=== PATIENT | female | born 1990 | race Caucasian/White ===

== ENCOUNTER → 2018-02-02 | Outpatient (REF) | payer OTHER | LOC: M SFHCLERA 12:04 | DX: J02.9 Acute pharyngitis, unspecified (principal) ==

== ENCOUNTER → 2018-02-02 | Outpatient (CLI) | payer OTHER | LOC: M LRY 12:17 | DX: R05 Cough (principal); R07.89 Other chest pain | CPT/HCPCS: 71046; 87880 ==

== ENCOUNTER → 2019-01-23 | Outpatient (CLI) | payer OTHER ==
--- NOTE | 2019-01-23 13:26 | REP ---
Nasal bone series three views: There is no nasal bone fracture. No orbital rim fracture is identified. There are no air-fluid levels in the paranasal sinuses. Impression: There is no nasal bone fracture. Electronically Signed by Willy Christine MD 01/23/2019 01:18 P
== END ==
LOC: M LRY 12:53
PROVIDERS: ATTEND Physician Assistant
DX: S09.92XA Unspecified injury of nose, initial encounter (principal); X58.XXXA Exposure to other specified factors, initial encounter; Y92.89 Other specified places as the place of occurrence of the external cause
CPT/HCPCS: 70160; 96372; G0463; J1885

== ENCOUNTER → 2019-06-28 | Outpatient (REF) | payer OTHER | LOC: M SFHCLERA 16:16 | PROVIDERS: ATTEND Physician Assistant | DX: R50.9 Fever, unspecified (principal) ==

== ENCOUNTER → 2019-07-11 | Outpatient (REF) | payer OTHER ==
[2019-07-11 14:32] LABS: HEMATOCRIT 42.8 % (36.0-47.0); HEMOGLOBIN 13.8 g/dl (12.0-15.5); MEAN CORPUSCULAR HEMOGLOBIN 29.1 pg (27.0-33.0); MEAN CORPUSCULAR HGB CONC 32.2 g/dl (32.0-36.5); MEAN CORPUSCULAR VOLUME 90.1 fl (80.0-96.0); PLATELET COUNT, AUTOMATED 266 10^3/uL (150-450); RED BLOOD COUNT 4.75 10^6/uL (4.00-5.40); WHITE BLOOD COUNT 4.2 10^3/uL (4.0-10.0)
[2019-07-11 15:36] LABS: HIV 1&2 SCREEN CENTAUR NEGATIVE (NEGATIVE); RUBELLA IgG QUALITATIVE IMMUNE (IMMUNE)
[2019-07-11 16:03] LABS: CHLAMYDIA DNA AMPLIFICATION NEGATIVE (NEGATIVE); GC DNA AMPLIFICATION NEGATIVE (NEGATIVE)
== END ==
LOC: M PLALAB 11:26
PROVIDERS: ATTEND Specialist
DX: Z34.81 Encounter for supervision of other normal pregnancy, first trimester (principal)

== ENCOUNTER → 2019-07-19 | Outpatient (REF) | payer OTHER | LOC: M SFHCWAGY 17:40 | PROVIDERS: ATTEND Advanced Practice Midwife | DX: O99.341 Other mental disorders complicating pregnancy, first trimester (principal) ==

== ENCOUNTER → 2019-07-31 | Outpatient (CLI) | payer OTHER ==
[2019-07-31 14:53] LABS: INFLUENZA A AMPLIFICATION NEGATIVE (NEGATIVE); INFLUENZA B AMPLIFICATION NEGATIVE (NEGATIVE)
== END ==
LOC: M LABSMTC 12:46
PROVIDERS: ATTEND Family Medicine
DX: Z11.59 Encounter for screening for other viral diseases (principal); Z20.828 Contact with and (suspected) exposure to other viral communicable diseases
CPT/HCPCS: 87502; U0002

== ENCOUNTER → 2019-08-27 | Outpatient (CLI) | payer OTHER ==
--- NOTE | 2019-08-28 05:58 | REP ---
Clinical: . Epigastric pain. Technique: Real time reyes scale and color evaluation using curved array transducer. Findings: Liver, spleen, and pancreas are normal in contour, size, echogenicity without focal hepatic, splenic, or pancreatic lesion identified. Incidental 2 cm splenule noted. Gallbladder demonstrates multiple gallstones measuring up to 14 mm. Gallbladder wall is upper limits of normal at 3 mm and there is no evidence for pericholecystic fluid or discrete sonographic Kennedy's sign. No biliary ductal dilatation is appreciated and the common bile duct measures 2 mm diameter. The bilateral kidneys are normal in reniform shape without hydronephrosis. Right kidney measures 12.2 x 4.8 x 4.0 cm. Left kidney measures 10.0 x 5.1 x 5.0 cm. Abdominal aorta is unremarkable. No ascites. Impression: 1. Cholelithiasis.
== END ==
LOC: M WHC 08:17
PROVIDERS: ATTEND Obstetrics & Gynecology
DX: R10.13 Epigastric pain (principal)

== ENCOUNTER → 2019-08-28 | Outpatient (CLI) | payer OTHER ==
--- NOTE | 2019-08-29 04:34 | REP ---
Clinical: Anatomical evaluation. Comparison: None . Findings: Examination demonstrates a single live intrauterine in variable presentation. motion is identified by technologist. Placenta is noted posterior and grade zero without evidence for placenta previa or abruption. Amniotic fluid volume is normal. Cervix measures 3.0 cm in length and appears closed. No evidence for nuchal cord. Gestational age by current measurements 18 weeks 1 day with AMARI 01/28/2020 . FHR equals 136 beats per minute. BPD 4.1 cm 18 weeks 3 days HC 15.6 cm 18 weeks 3 days AC 12.7 cm 18 weeks 2 days FL 2.6 cm 17 weeks 6 days HL 2.6 cm 18 weeks 1 day HC/AC ratio 1.22 Estimated weight 225 grams ( 46th percentile). Anatomical assessment demonstrates normal structures including cranium, choroid plexus, cavum, cerebellum/posterior fossa, facial features, lungs, diaphragm, stomach, cord insertion/three-vessel cord, kidneys/bladder, spine, and extremities. Impression: Single live intrauterine in variable presentation demonstrating appropriate estimated weight. Limited evaluation of the heart/ventricular outflow tracts. Remainder of the anatomical assessment is complete and normal.
== END ==
LOC: M WHC 12:34
PROVIDERS: ATTEND Obstetrics & Gynecology
DX: Z3A.17 17 weeks gestation of pregnancy (principal)

== ENCOUNTER → 2019-09-08 | Outpatient (CLI) | payer OTHER ==
[~2019-09-08] MED LIST: ADDE10CA3 PO; CELE40TA PO; PRENTAB9 PO; URSO300C3 PO
== END ==
LOC: M LABSMTC 08:19
PROVIDERS: ATTEND Surgery
DX: Z01.818 Encounter for other preprocedural examination (principal); Z11.59 Encounter for screening for other viral diseases

== ENCOUNTER 2019-09-11 07:30 | Day surgery (SDC) | payer OTHER ==
[~2019-09-11] VITALS: Ht 162.6 cm; Wt 71.2 kg
[~2019-09-11 07:30] MED LIST changes: +LR 1,000 ML IV ONE; +ceFAZolin SOD 1 GM in D5W MINI-BAG PLUS 50 ML IV ONE
[2019-09-11] MEDS ORDERED: LIDOCAINE 2% 100MG/5ML SDV (FOR ANES.) As Ordered ONE (08:10)
[2019-09-11] MEDS ORDERED: propofoL 200 MG/20 ML VIAL As Ordered ONE (08:10)
[2019-09-11] MEDS ORDERED: ROCURONIUM BROMIDE 50 MG/5 ML VIAL As Ordered ONE (08:10)
[2019-09-11] MEDS ORDERED: fentaNYL 250 MCG/5 ML INJECTION (J3010) As Ordered ONE (08:10)
[2019-09-11] MEDS ORDERED: MIDAZOLAM INJ 2MG/2ML VIAL (J2250 PER 1MG) As Ordered ONE (08:10)
[2019-09-11] MEDS ORDERED: SUCCINYLCHOLINE 100 MG/5 ML SYRINGE (J0330) As Ordered ONE (08:10)
[2019-09-11] MEDS ORDERED: BUPIVACAINE/EPIN 0.25% 30 ML VIAL As Ordered ONE (08:49)
[2019-09-11] MEDS ORDERED: GLUCAGON INJ 1MG VIAL As Ordered ONE (08:49)
[2019-09-11] MEDS ORDERED: KETOROLAC 60 MG/2 ML VIAL As Ordered ONE (09:43)
[2019-09-11] MEDS ORDERED: ONDANSETRON 4MG/2ML VIAL As Ordered ONE (09:43)
[2019-09-11] MEDS ORDERED: dexameTHASONE 4 MG/ML 1ML VIAL (J1100 PER 1MG) As Ordered ONE (09:43)
[2019-09-11] MEDS ORDERED: METOCLOPRAMIDE INJ 10MG/2ML VIAL (J2765 PER 1) As Ordered ONE (09:43)
[2019-09-11] MEDS ORDERED: ACETAMINOPHEN 1000MG 100ML IV BTL (OFIRMEV) (J0131 PER 10MG) As Ordered ONE (09:45)
[2019-09-11] MEDS ORDERED: SUGAMMADEX SODIUM 500 MG/5 ML VIAL (BRIDION) As Ordered ONE (09:51)
[2019-09-11] MEDS ORDERED: fentaNYL 100 MCG/2 ML INJECTION (J3010) As Ordered ONE (10:14)
[2019-09-11] MEDS ORDERED: fentaNYL 100 MCG/2 ML INJECTION (J3010) IV PRN (10:45)
[2019-09-11] MEDS ORDERED: LR 1,000 ML IV SCH ×2 (10:45→11:00)
[2019-09-11] MEDS ORDERED: ONDANSETRON 4MG/2ML VIAL IV PRN (10:45)
[2019-09-11] MEDS ORDERED: NORCO, ANEXSIA 5/325MG TABLET (HYDROcodone/ACETAMINOPHEN) PO PRN (11:00)
[2019-09-11 12:35] VITALS: BP 113/57
== END 2019-09-11 12:45 | disposition home or self-care (01) ==
LOC: M SDC 07:30
PROVIDERS: ATTEND Surgery
DX: O99.612 Diseases of the digestive system complicating pregnancy, second trimester (principal); K80.10 Calculus of gallbladder with chronic cholecystitis without obstruction; Z3A.21 21 weeks gestation of pregnancy; Z79.899 Other long term (current) drug therapy; F41.9 Anxiety disorder, unspecified; F32.9 Major depressive disorder, single episode, unspecified
CPT/HCPCS: 47562; 88304; J0131; J0330; J0690; J1100; J1885; J2405; J2765; J3010

== ENCOUNTER → 2019-09-28 | Outpatient (CLI) | payer OTHER ==
[~2019-09-28] MED LIST changes: -LR 1,000 ML IV ONE; -ceFAZolin SOD 1 GM in D5W MINI-BAG PLUS 50 ML IV ONE
--- NOTE | 2019-09-28 17:27 | REP ---
Clinical: Anatomical evaluation. Comparison: 08/28/2019 . Findings: Examination demonstrates a single live intrauterine in breech presentation. motion is identified by technologist. Placenta is noted posterior and grade I without evidence for placenta previa or abruption. Amniotic fluid volume is normal. Cervix measures 3.5 cm in length and appears closed. No evidence for nuchal cord. Gestational age by LMP 22 weeks 4 days with AMARI 01/28/2020 . Gestational age by current measurements 22 weeks 4 days with AMARI 01/28/2020. FHR equals 152 beats per minute. Estimated weight 542 grams ( 54th percentile). Anatomical assessment demonstrates normal structures including cranium, cavum, cerebellum/posterior fossa, facial features, lungs, four-chamber heart/ventricular outflow tracts, diaphragm, stomach, cord insertion/three-vessel cord, kidneys/bladder. Impression: 1. Single live intrauterine in breech presentation demonstrating appropriate interval growth. 2. Small right choroid plexus cyst measures 7 mm diameter. In conjunction with prior examination, remainder of the anatomical assessment is complete and normal.
== END ==
LOC: M WHC 10:34
PROVIDERS: ATTEND Advanced Practice Midwife
DX: O26.892 Other specified pregnancy related conditions, second trimester (principal); Z3A.22 22 weeks gestation of pregnancy; O32.1XX0 Maternal care for breech presentation, not applicable or unspecified

== ENCOUNTER → 2020-01-03 | Outpatient (REF) | payer OTHER ==
[~2020-01-03] MED LIST changes: +ADDE10TA PO; +FIOR1CAP PO; +FIORCAP3 PO; +MAPA500T2 PO
== END ==
LOC: M WHC 16:00
PROVIDERS: ATTEND Advanced Practice Midwife
DX: Z34.83 Encounter for supervision of other normal pregnancy, third trimester (principal); Z36.85 Encounter for antenatal screening for Streptococcus B

== ENCOUNTER 2020-01-06 17:40 | Outpatient (CLI) | payer OTHER ==
[~2020-01-06] VITALS: Ht 162.6 cm; Wt 77.2 kg
[~2020-01-06 17:40] MED LIST changes: -ADDE10TA PO; -FIOR1CAP PO; -FIORCAP3 PO; -MAPA500T2 PO
[2020-01-06 17:54] VITALS: BP 108/59
[2020-01-06] MEDS ORDERED: MAPA500T2 PO (18:03)
[2020-01-06 18:34] VITALS: BP 108/60
== END 2020-01-06 18:36 | disposition home or self-care (01) ==
LOC: M LDO 17:40
PROVIDERS: ATTEND Specialist
DX: O26.893 Other specified pregnancy related conditions, third trimester (principal); Z3A.38 38 weeks gestation of pregnancy
CPT/HCPCS: 59025; G0378; G0463

== ENCOUNTER 2020-01-14 19:38 | Outpatient (CLI) | payer OTHER ==
[~2020-01-14] VITALS: Ht 162.6 cm; Wt 78.0 kg
[~2020-01-14 19:38] MED LIST changes: +MAPA500T2 PO
[2020-01-14] MEDS ORDERED: FIOR1CAP PO (20:05)
[2020-01-14 20:08] VITALS: BP 121/81
[2020-01-14] MEDS ORDERED: PERCOCET 5MG/325MG TAB PO ONE (20:15)
[2020-01-14 20:16] VITALS: BP 121/81
--- NOTE | 2020-01-14 21:21 | IPNPDOC ---
Text Note Date of Service The patient was seen on 01/14/20. NOTE Subjective: Patient is a 29-year-old female who is at 39.3 weeks gestation. She presents to L&D with complaints of a migraine that started yesterday. She reports a few episodes of nausea with vomiting and what she explains as one of the worst migraines she has had. She has taken Esgic with minimal to no relief. Reports migraine is an 8/10. Ivory states she can't take Imitrex due to side effects from medication. Given Percocet while in department. She reports active movement. She denies vaginal bleeding, leaking of fluid or contractions. After one dose of Percocet she reports her migraine has gotten better. Objective: VS stable. FHR: 130, moderate variability, positive accelerations, no decelerations. Contractions: irregular. A+Ox3; Respiratory; regular rate with no use of accessory muscles; Abdomen: gravid, soft and not tender. Assessment: IUP at 39.3 weeks gestation, migraine, Category I FHR tracing Plan: Patient discharged to home. She desires to be induced on Tuesday. She was placed in the book for induction. She is to go to her scheduled appointment on Tuesday morning. Reviewed access to care, kick count, labor signs, preeclamptic signs, abruption signs and other danger signs to report. VS,Changbone, I+O VS, Fishbone, I+O Vital Signs Date Time Temp Pulse Resp B/P (MAP) Pulse Ox O2 Delivery O2 Flow Rate FiO2 01/14/20 20:16 96.9 86 18 121/81 Room Air RAIZA MCALLISTER CNM Jan 14, 2020 21:21
== END 2020-01-14 21:03 | disposition home or self-care (01) ==
LOC: M LDO 19:38
PROVIDERS: ATTEND Advanced Practice Midwife
DX: O99.353 Diseases of the nervous system complicating pregnancy, third trimester (principal); G43.909 Migraine, unspecified, not intractable, without status migrainosus; Z3A.39 39 weeks gestation of pregnancy
CPT/HCPCS: 59025; G0378; G0463

== ENCOUNTER 2020-01-16 16:30 | Outpatient (CLI) | payer OTHER ==
[~2020-01-16] VITALS: Ht 162.6 cm; Wt 78.3 kg
[~2020-01-16 16:30] MED LIST changes: +FIOR1CAP PO
[2020-01-16 16:58] VITALS: BP 114/70
[2020-01-16] MEDS ORDERED: ADDE10TA PO (17:03)
[2020-01-16] MEDS ORDERED: FIORCAP3 PO (17:05)
== END 2020-01-16 17:29 | disposition home or self-care (01) ==
LOC: M LDO 16:30
PROVIDERS: ATTEND Advanced Practice Midwife
DX: O47.1 False labor at or after 37 completed weeks of gestation (principal); Z3A.39 39 weeks gestation of pregnancy
CPT/HCPCS: 59025; G0378; G0463

== ENCOUNTER 2020-01-19 09:48 | Inpatient (IN) | payer OTHER ==
[~2020-01-19] VITALS: Ht 162.6 cm; Wt 79.2 kg
[~2020-01-19 09:48] MED LIST changes: +ADDE10TA PO; +FIORCAP3 PO
--- NOTE | 2020-01-19 13:44 | HPEPDOC ---
Obstetrical History & Physical General Date of Admission Jan 19, 2020 at 09:48 History of Present Illness 29-year-old 2, para 1 presents at 40 weeks 1 day estimated gestational a ge for induction labor. Her course is been unremarkable. She initiated care first trimesters and appropriate throughout. She reports active movements. Denies any vaginal bleeding, leakage fluid or regular contractions Chief Complaint: Induction of labor Information Provided By: Patient Age: 29 Care Care: Good Care Dating Final EDC: Jan 18, 2020 Final EDC by: 1st trimester (US) Past Medical History Past Obstetrical History : Past Obstetrical History: Multigravida Type of Delivery: Spontaneous Vaginal Del. (history of 20 delivery with at 34 weeks at home. 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 history Past Medical History Surgical History: Denies/None, Gallbladder Family History Significant Family History: No pertinent family hx Social History Marital Status: Family situation: Spouse/partner home Psychosocial History: No pertinent psych hx * Smoker: non-smoker Alcohol: Denies Drugs: denies Allergies Coded Allergies: No Known Allergies (Unverified , 01/19/20) Medications Scheduled Citalopram Hydrobromide (Celexa) 40 Mg Tablet, 40 MG PO DAILY No.137/Iron/Folic Acd ( Vitamin Tablet) 1 Each Tablet, 1 TAB PO DAILY Scheduled PRN Acetaminophen (Mapap) 500 Mg Tablet, 650 MG PO Q4HP PRN for DISCOMFORT Butalbital/Aspirin/Caffeine (Fiorinal 50-325-40 mg Capsule) 1 Each Capsule, 1 CAP PO Q4H PRN for HEADACHE Physical Examination Physical Examination GENERAL: Alert and oriented times three. BREAST: . ABDOMEN: Gravid and non-tender to touch. FETUS: Is vertex (VTX) by sterile vaginal examination (SVE), fetus is vertex (VTX) by Anderson. HEART RATE: Regular rate and rhythm. LUNGS: Clear to auscultation (CTA). Laboratory Data [facility] Laboratory Tests 2 01/19/20 10:20: Serology Scanned Report Hepatitis B Testing Pertinent Laboratoy Data Blood Type: O+ RBC Antibody Screen: Negative HIV: Negative Hepatitis B: Negative Rapid Plasma Reagin: Nonreactive Rubella: Immune Chlamydia/Gonorrhea: Negative Group B Streptococcus: Negative Anatomy Ultrasound Placenta Location: Posterior Normal Anatomy: Yes Placenta Previa: No Vaginal Examination Dilation: 3 cm Effacement: 50% Station: -2 Cervical Consistency: Medium Cervical Position: Middle Presentation: Cephalic presentation Assessment Variability: Moderate Accelerations: Positive Tocometer Contractions: No Assessment/Plan Assessment [id number] 2 , para 1 at 40 weeks 1 days as needed gestational age for induction labor. Reassuring status. Patient thoroughly counseled regards to induction labor. Discussed medication as well as procedures performed labor and delivery. She is been counseled for emergency surgery, blood products anesthesia and pt desires to proceed with admission and induction labor. Will initiate her induction of labor with Pitocin. Plan Admit and orient. Figure Skater and consent. Diet: Clears Group B Streptococcus (GBS) negative. Labs and intravenous (IV) per unit protocol. Counseled on Pitocin and induction of labor (IOL). Anticipate normal spontaneous delivery (). C-S as appropriate. CAMERON BARRERA MD. Jan 19, 2020 13:44
[2020-01-19] MEDS ORDERED: OXYTOCIN DRIP 30 UNITS in IV 1 EA IV SCH (13:45)
[2020-01-19] MEDS: LR 1,000 ML IV SCH ×3 (14:09→23:15)
[2020-01-19] MEDS ORDERED: ACETAMINOPHEN 500 MG TAB PO PRN (16:15)
[2020-01-19 17:35] LABS: HEMATOCRIT 33.3 % (36.0-47.0); HEMOGLOBIN 10.4 g/dl (12.0-15.5); MEAN CORPUSCULAR HEMOGLOBIN 25.8 pg (27.0-33.0); MEAN CORPUSCULAR HGB CONC 31.2 g/dl (32.0-36.5); MEAN CORPUSCULAR VOLUME 82.6 fl (80.0-96.0); PLATELET COUNT, AUTOMATED 234 10^3/uL (150-450); RED BLOOD COUNT 4.03 10^6/uL (4.00-5.40)
[2020-01-19] MEDS ORDERED: PROMETHAZINE INJ 25 MG/ML VIAL (J2550) IV PRN (21:00)
[2020-01-19] MEDS ORDERED: BUTORPHANOL 2 MG/ML INJ (J0595) IV ONE (21:00)
[2020-01-19] MEDS ORDERED: FENTANYL 2MCG/ML ROPIVACAINE 0.2% IN 0.9% NACL 100ML IVBAG As Ordered ONE (22:55)
[2020-01-20] MEDS: LR 1,000 ML IV SCH (00:19)
[2020-01-20] MEDS ORDERED: ePHEDrine SULFATE 25 MG/5 ML(5MG/ML) SYRINGE As Ordered ONE (00:42)
[2020-01-20] MEDS ORDERED: LACTATED RINGER'S 1000 ML IV PRN (00:45)
[2020-01-20] MEDS ORDERED: EPIDURAL COMMENT XX SCH (00:45)
[2020-01-20] MEDS ORDERED: REFRIGERATOR IV KEYS XX PRN (00:45)
[2020-01-20] MEDS ORDERED: EPIDURAL/PCA KEYS XX PRN (00:45)
[2020-01-20] MEDS ORDERED: NALOXONE INJ 0.4MG/1ML VIAL (J2310 PER 1MG) IV PRN (00:45)
[2020-01-20] MEDS ORDERED: ONDANSETRON 4MG/2ML VIAL IV PRN (00:45)
[2020-01-20] MEDS ORDERED: FENTANYL/ROPIVACAINE/NACL BAG 100 ML EPIDURAL SCH (00:45)
[2020-01-20] MEDS ORDERED: diphenhydrAMINE 50MG/ML VIAL (J1200) IV PRN (00:45)
[2020-01-20] MEDS: ePHEDrine SULFATE 25 MG/5 ML(5MG/ML) SYRINGE IV PRN ×2 (00:46→02:51)
[2020-01-20 05:22] LABS: CORD GAS ABE A -6.3; CORD GAS ABE V -9.6; CORD GAS HCO3 A 22.1 MEQ/L; CORD GAS HCO3 V 18.1 MEQ/L; CORD GAS O2 SAT A 56.2 %; CORD GAS O2 SAT V 25.2 %; CORD GAS PCO2 V 46.1 mmHg; CORD GAS PH A 7.222 UNITS; CORD GAS PH V 7.213 UNITS; CORD GAS PO2 A 27.6 mmHg; CORD GAS PO2 V 16.9 mmHg; CORD GAS SBC A 18.4 MEQ/L; CORD GAS SBC V 15.5 MEQ/L; CORD GAS TCO2 A 23.8 MEQ/L; CORD GAS TCO2 V 19.6 MEQ/L
[2020-01-20] MEDS ORDERED: OXYTOCIN DRIP 30 UNITS in IV 1 EA IV SCH (05:23)
--- NOTE | 2020-01-20 05:28 | DNPDOC ---
[facility] Delivery Note Delivery Note DATE OF DELIVERY: 01/20/2020 TIME OF : 0507 GENDER:, Male. APGARS:, 5, 7 and 8. WEIGHT:, 3360 grams or 7 pounds 7 ounces. LACERATIONS: None ANESTHESIA: Epidural. ESTIMATED BLOOD LOSS: 300ml COUNTS: 5 laparotomy sponges accounted for prior to after delivery. 4 sharps re moved delivery field. DELIVERY NOTE: On 01/20/2020 at 0507 Mrs Yong munoz 29yo G2, now P2, had a spontaneous vaginal delivery of viable male infant, Apgars 5, 7 and 8. Weight was 3360 g or 7 lbs. 7 oz. Head was delivered occiput anterior (OA) . Nuchal cord x2 was manually reduced, followed by delivery of the shoulders and corpus. Cord was clamped times two and was cut by the father of baby under my direction. Placenta was then drained and delivered grossly intact. A premixed bag of 500 mL of normal saline with 30 units of Pitocin was then bolused along with uterine massage until the uterus was firm. On inspection, cervix, vagina, perineum was grossly intact and hemostatic. Mom and baby in recovery on stable condition. The couples decided to remain in son CAMERON Lopez MD. Jan 20, 2020 05:28
[2020-01-20] MEDS ORDERED: ANUSOL HC CREAM 30GM TOP PRN (05:30)
[2020-01-20] MEDS ORDERED: MOM 30ML SUSPENSION UDC PO PRN (05:30)
[2020-01-20] MEDS ORDERED: RHOGAM 300 MCG (1500 IU) INJ (J2790) IM SCH (05:30)
[2020-01-20] MEDS ORDERED: IBUPROFEN 600MG TAB PO PRN (05:30)
[2020-01-20] MEDS ORDERED: DOCUSATE SODIUM 100 MG CAP PO PRN (05:30)
[2020-01-20] MEDS ORDERED: DIBUCAINE 1% OINTMENT 30GM TOP PRN (05:30)
[2020-01-20] MEDS ORDERED: METHYLERGONOVINE MALEATE 0.2 MG TAB PO PRN (05:30)
[2020-01-20] MEDS ORDERED: ACETAMINOPHEN TAB 650MG DOSE (2X325MG) PO PRN (05:30)
[2020-01-20] MEDS ORDERED: MEASLES,MUMPS,RUBELLA VACCINE INJ (MMR-II) (90707) SC SCH (05:30)
[2020-01-20] MEDS: IBUPROFEN 800 MG TAB PO PRN ×2 (06:13→15:33)
[2020-01-20] MEDS: PRENATAL VITAMINS CHEWABLE TABLET PO SCH (07:17)
[2020-01-20] MEDS: ACETAMINOPHEN 500 MG TAB PO PRN ×3 (07:17→19:38)
[2020-01-20 08:30] VITALS: BP 112/58
[2020-01-20] MEDS ORDERED: CitaloPRAM (CeleXA) 20 MG TAB PO SCH ×3 (09:00→21:00)
[2020-01-20 18:00] VITALS: BP 113/62
[2020-01-21 05:51] VITALS: BP 109/57
[2020-01-21] MEDS: PRENATAL VITAMINS CHEWABLE TABLET PO SCH (08:16)
[2020-01-21] MEDS: ACETAMINOPHEN 500 MG TAB PO PRN (08:17)
[2020-01-21] MEDS ORDERED: CitaloPRAM (CeleXA) 20 MG TAB PO SCH ×2 (09:00)
[2020-01-21] MEDS ORDERED: BOOSTRIX/ADACEL VACCINE (DIPHTH/PERTUSS/ACELL/TETANUS) 0.5ML SYR IM ONE (09:00)
[2020-01-21] MEDS ORDERED: INFLUENZA QUADRIVALENT PF VACCINE 0.5ML SYRINGE IM ONE (09:00)
== END 2020-01-21 11:45 | disposition home or self-care (01) | DRG 807 ==
LOC: M LDI 09:48 → M OBS 01-20 08:33
PROVIDERS: ADMIT Obstetrics & Gynecology; ATTEND Obstetrics & Gynecology
PROC: 3E033VJ Introduction of Other Hormone into Peripheral Vein, Percutaneous Approach (ICD-10-PCS; 2020-01-19)
PROC: 10E0XZZ Delivery of Products of Conception, External Approach (ICD-10-PCS; principal; 2020-01-20)
DX: O48.0 Post-term pregnancy (principal); Z37.0 Single live birth; Z3A.40 40 weeks gestation of pregnancy; O69.81X0 Labor and delivery complicated by cord around neck, without compression, not applicable or unspecified

== ENCOUNTER → 2020-05-18 | Outpatient (CLI) | payer OTHER ==
[~2020-05-18] MED LIST changes: +ADDE20CA3 PO
== END ==
LOC: M LABSMTC 10:06
PROVIDERS: ATTEND Anesthesiology
DX: Z01.812 Encounter for preprocedural laboratory examination (principal); Z20.822 Contact with and (suspected) exposure to COVID-19

== ENCOUNTER 2020-05-23 08:29 | Day surgery (SDC) | payer OTHER ==
[~2020-05-23] VITALS: Ht 162.6 cm; Wt 72.6 kg
[~2020-05-23 08:29] MED LIST changes: +LR 1,000 ML IV ONE
--- OUTSIDE RECORDS SUMMARY | 2020-05-23 08:33 | CCD ---
Author Author [facility] Organization [facility] Address Unknown Phone Unavailable Care Team Providers Care Analytical Sciences Director Name Role Phone Angela Almanzar Unavailable PROBLEMS Type Condition ICD9-CM Code HKE28-CB Code Onset Dates Condition S tatus SNOMED Code Notes Problem Other central nervous system complications of anesthesia during , second trimester O29.292 Active 92968254 3 Problem Cholelithiasis K80.20 Active 597336734 Problem Intractable migraine without status migrainosus, unspecified migraine type G43.919 Active 225941071 Problem Supervision of other normal Z34.80 Ac tive 444476119 Problem 11 weeks gestation of Z3A.11 Active 79655641 Problem Adult ADHD F90.9 Active 247547462 ALLERGIES No Known Allergies ENCOUNTERS from 1991 to 2020-03-25 Encounter Location Date Provider Diagnosis [facility] [address] [place] [id number] Mar, Angela Almanzar IMMUNIZATIONS No Information SOCIAL HISTORY Tobacco Use: Social History Observation Description Date Details (start date - stop date) Never Smoker Sex Assigned At : Social History Observation Description Sex Assigned At Unknown Education: Question Answer Notes Level of Education: Not Finished College Language: Question Answer Notes Languages spoken: Scottish Domestic Violence: Question Answer Notes Status: No history of abuse Sexual Hx: Question Answer Notes Had sex in the last 12 months (vaginal, oral, or anal)? Yes LMP: 14 Apr 2019 Have you ever had an STD? No with Men only Use protection? No Alcohol Screening: Question Answer Notes Did you have a drink containing alcohol in the past year? No Points 0 Interpretation Negative Tobacco Use: Question Answer Notes Are you a: never smoker REASON FOR REFERRAL No Information VITAL SIGNS No information MEDICATIONS Medication SIG (Take, Route, Frequency, Duration) Notes Start Da te End Date Status Citalopram Hydrobromide 40 MG 1 tablet Orally Once a day for 30 day(s ) Active Esgic 50-325-40 MG 1 capsule as needed Orally every 4 - 6 hrs for 7 day(s) Active - 1 tablet Orally Once a day for 30 day(s) Active Adderall 10 MG 1 tablet Orally Twice a day for 30 days Feb, Active PROCEDURES No Information RESULTS No Results REASON FOR VISIT AUTHORIZATION MEDICAL (GENERAL) HISTORY Type Description Date Medical History 2015 Irion/ Di twins- one di ed at 18 weeks, delivered at 34 weeks Medical History ADHD Medical History Depression Medical History Anxiety Surgical History knee surgery left 2010 Surgical History knee surgery right 2011 Surgical History arm surgery 2003 Surgical History gall bladder removal 2019 Hospitalization History Childbirth Goals Section No Information Health Concerns No Information MEDICAL EQUIPMENT No Information MENTAL STATUS No Information FUNCTIONAL STATUS No Information ASSESSMENTS No Information PLAN OF TREATMENT Next Appt Details Provider Name:Angela Walters Yohan, 2020-05-23 0 4:30:00 PM, [address] [place] [address], [phone], Provider Name:Angela Selena Yohan, 2020-06-17 1 2:00:00 AM, [address] [place] [address], [id number], Insurance Providers Payer Name Payer Address Payer Phone Insured Name Patient Relati onship to Insured Coverage Start Date Coverage End Date [facility] [id number] [id number] [address]
--- OUTSIDE RECORDS SUMMARY | 2020-05-23 08:33 | CCD ---
Author Author [facility] Organization [facility] Address Unknown Phone Unavailable Care Team Providers Care [employer] Assistant Football Coach Name Role Phone Elizabeth Adkins JR, MD Unavailable Unavailable Elizabeth Adkins JR, MD Unavailable Unavailable Elizabeth Adkins JR, MD Unavailable Unavailable Elizabeth Adkins JR, MD Unavailable Unavailable Elizabeth Adkins JR, MD Unavailable Unavailable Elizabeth Adkins JR, MD Unavailable Unavailable Elizabeth Adkins JR, MD Unavailable Unavailable Elizabeth Adkins JR, MD Unavailable Unavailable Elizabeth Adkins JR, MD Unavailable Unavailable Elizabeth Adkins JR, MD Unavailable Unavailable Elizabeth Adkins JR, MD Unavailable Unavailable Elizabeth Adkins JR, MD Unavailable Unavailable Elizabeth Adkins JR, MD Unavailable Unavailable Elizabeth Adkins JR, MD Unavailable Unavailable Elizabeth Adkins JR, MD Unavailable Unavailable Elizabeth Adkins JR, MD Unavailable Unavailable Elizabeth Adkins JR, MD Unavailable Unavailable Elizabeth Adkins JR, MD Unavailable Unavailable Elizabeth Adkins JR, MD Unavailable Unavailable Elizabeth Adkins JR, MD Unavailable Unavailable Elizabeth Adkins JR, MD Unavailable Unavailable Elizabeth Adkins JR, MD Unavailable Unavailable Elizabeth Adkins JR, MD Unavailable Unavailable Elizabeth Adkins JR, MD Unavailable Unavailable Elizabeth Adkins JR, MD Unavailable Unavailable Elizabeth Adkins JR, MD Unavailable Unavailable Elizabeth Adkins JR, MD Unavailable Unavailable Elizabeth Adkins JR, MD Unavailable Unavailable Elizabeth Adkins JR, MD Unavailable Unavailable Elizabeth Adkins JR, MD Unavailable Unavailable Elizabeth Adkins JR, MD Unavailable Unavailable Elizabeth Adkins JR, MD Unavailable Unavailable Elizabeth Adkins JR, MD Unavailable Unavailable Elizabeth Adkins JR, MD Unavailable Unavailable Elizabeth Adkins JR, MD Unavailable Unavailable Elizabeth Adkins JR, MD Unavailable Unavailable Elizabeth Adkins JR, MD Unavailable Unavailable Elizabeth Adkins JR, MD Unavailable Unavailable Elizabeth Adkins JR, MD Unavailable Unavailable Elizabeth Adkins JR, MD Unavailable Unavailable Elizabeth Adkins JR, MD Unavailable Unavailable Elizabeth Adkins JR, MD Unavailable Unavailable Elizabeth Adkins JR, MD Unavailable Unavailable Elizabeth Adkins JR, MD Unavailable Unavailable Elizabeth Adkins JR, MD Unavailable Unavailable Elizabeth Adkins JR, MD Unavailable Unavailable Elizabeth Adkins JR, MD Unavailable Unavailable Elizabeth Adkins JR, MD Unavailable Unavailable Elizabeth Adkins JR, MD Unavailable Unavailable Elizabeth Adkins JR, MD Unavailable Unavailable Elizabeth Adkins JR, MD Unavailable Unavailable Elizabeth Adkins JR, MD Unavailable Unavailable Elizabeth Adkins JR, MD Unavailable Unavailable Elizabeth Adkins JR, MD Unavailable Unavailable Elizabeth Adkins JR, MD Unavailable Unavailable CASTILLO, M FELECIA VALVE TECHNICIAN Unavailable Unavailable CASTILLO, M FELECIA VALVE TECHNICIAN Unavailable Unavailable CASTILLO, M FELECIA VALVE TECHNICIAN Unavailable Unavailable CASTILLO, M FELECIA VALVE TECHNICIAN Unavailable Unavailable CASTILLO, M FELECIA VALVE TECHNICIAN Unavailable Unavailable CASTILLO, M FELECIA VALVE TECHNICIAN Unavailable Unavailable CASTILLO, M FELECIA VALVE TECHNICIAN Unavailable Unavailable CASTILLO, M FELECIA VALVE TECHNICIAN Unavailable Unavailable CASTILLO, M FELECIA VALVE TECHNICIAN Unavailable Unavailable CASTILLO, M FELECIA VALVE TECHNICIAN Unavailable Unavailable CASTILLO, M FELECIA VALVE TECHNICIAN Unavailable Unavailable CASTILLO, M FELECIA VALVE TECHNICIAN Unavailable Unavailable CASTILLO, M FELECIA VALVE TECHNICIAN Unavailable Unavailable CASTILLO, M FELECIA VALVE TECHNICIAN Unavailable Unavailable CASTILLO, M FELECIA VALVE TECHNICIAN Unavailable Unavailable CASTILLO, M FELECIA VALVE TECHNICIAN Unavailable Unavailable CASTILLO, M FELECIA VALVE TECHNICIAN Unavailable Unavailable CASTILLO, M FELECIA VALVE TECHNICIAN Unavailable Unavailable CASTILLO, M FELECIA VALVE TECHNICIAN Unavailable Unavailable CASTILLO, M FELECIA VALVE TECHNICIAN Unavailable Unavailable CASTILLO, M FELECIA VALVE TECHNICIAN Unavailable Unavailable CASTILLO, M FELECIA VALVE TECHNICIAN Unavailable Unavailable CASTILLO, M FELECIA VALVE TECHNICIAN Unavailable Unavailable CASTILLO, M FELECIA VALVE TECHNICIAN Unavailable Unavailable CASTILLO, M FELECIA VALVE TECHNICIAN Unavailable Unavailable CASTILLO, M FELECIA VALVE TECHNICIAN Unavailable Unavailable CASTILLO, M FELECIA VALVE TECHNICIAN Unavailable Unavailable CASTILLO, M FELECIA VALVE TECHNICIAN Unavailable Unavailable CASTILLO, M FELECIA VALVE TECHNICIAN Unavailable Unavailable CASTILLO, M FELECIA VALVE TECHNICIAN Unavailable Unavailable CASTILLO, M FELECIA VALVE TECHNICIAN Unavailable Unavailable CASTILLO, M FELECIA VALVE TECHNICIAN Unavailable Unavailable CASTILLO, M FELECIA VALVE TECHNICIAN Unavailable Unavailable CASTILLO, M FELECIA VALVE TECHNICIAN Unavailable Unavailable CASTILLO, M FELECIA VALVE TECHNICIAN Unavailable Unavailable CASTILLO, M FELECIA VALVE TECHNICIAN Unavailable Unavailable CASTILLO, M FELECIA VALVE TECHNICIAN Unavailable Unavailable CASTILLO, M FELECIA VALVE TECHNICIAN Unavailable Unavailable CASTILLO, M FELECIA VALVE TECHNICIAN Unavailable Unavailable CASTILLO, M FELECIA VALVE TECHNICIAN Unavailable Unavailable CASTILLO, M FELECIA VALVE TECHNICIAN Unavailable Unavailable CASTILLO, M FELECIA VALVE TECHNICIAN Unavailable Unavailable CASTILLO, M FELECIA VALVE TECHNICIAN Unavailable Unavailable CASTILLO, M FELECIA VALVE TECHNICIAN Unavailable Unavailable CASTILLO, M FELECIA VALVE TECHNICIAN Unavailable Unavailable CASTILLO, M FELECIA VALVE TECHNICIAN Unavailable Unavailable CASTILLO, M FELECIA VALVE TECHNICIAN Unavailable Unavailable CASTILLO, M FELECIA VALVE TECHNICIAN Unavailable Unavailable CASTILLO, M FELECIA VALVE TECHNICIAN Unavailable Unavailable CASTILLO, M FELECIA VALVE TECHNICIAN Unavailable Unavailable CASTILLO, M FELECIA VALVE TECHNICIAN Unavailable Unavailable CASTILLO, M FELECIA VALVE TECHNICIAN Unavailable Unavailable CASTILLO, M FELECIA VALVE TECHNICIAN Unavailable Unavailable CASTILLO, M FELECIA VALVE TECHNICIAN Unavailable Unavailable CASTILLO, M FELECIA VALVE TECHNICIAN Unavailable Unavailable CASTILLO, M FELECIA VALVE TECHNICIAN Unavailable Unavailable CATSILLO, M FELECIA VALVE TECHNICIAN Unavailable Unavailable CASTILLO, M FELECIA VALVE TECHNICIAN Unavailable Unavailable TURRIN, CARL Unavailable Unavailable TURRIN, CARL Unavailable Unavailable TURRIN, CARL Unavailable Unavailable TURRIN, CARL Unavailable Unavailable TONTARSKI, G SAMI PA Unavailable Unavailable TONTARSKI, G SAMI PA Unavailable Unavailable TONTARSKI, G SAMI PA Unavailable Unavailable TONTARSKI, G SAMI PA Unavailable Unavailable TONTARSKI, G SAMI PA Unavailable Unavailable TONTARSKI, G SAMI PA Unavailable Unavailable TONTARSKI, G SAMI PA Unavailable Unavailable TONTARSKI, G SAMI PA Unavailable Unavailable TONTARSKI, G SAMI PA Unavailable Unavailable TONTARSKI, G SAMI PA Unavailable Unavailable TONTARSKI, G SAMI PA Unavailable Unavailable TONTARSKI, G SAMI PA Unavailable Unavailable TONTARSKI, G SAMI PA Unavailable Unavailable TONTARSKI, G SAMI PA Unavailable Unavailable TONTARSKI, G SAMI PA Unavailable Unavailable TONTARSKI, G SAMI PA Unavailable Unavailable TONTARSKI, G SAMI PA Unavailable Unavailable TONTARSKI, G SAMI PA Unavailable Unavailable TONTARSKI, G SAMI PA Unavailable Unavailable TONTARSKI, G SAMI PA Unavailable Unavailable TONTARSKI, G SAMI PA Unavailable Unavailable TONTARSKI, G SAMI PA Unavailable Unavailable TONTARSKI, G SAMI PA Unavailable Unavailable TONTARSKI, G SAMI PA Unavailable Unavailable TONTARSKI, G SAMI PA Unavailable Unavailable TONTARSKI, G SAMI PA Unavailable Unavailable TONTARSKI, G SAMI PA Unavailable Unavailable TONTARSKI, G SAMI PA Unavailable Unavailable TONTARSKI, G SAMI PA Unavailable Unavailable TONTARSKI, G SAMI PA Unavailable Unavailable TONTARSKI, G SAMI PA Unavailable Unavailable TONTARSKI, G SAMI PA Unavailable Unavailable TONTARSKI, G SAMI PA Unavailable Unavailable TONTARSKI, G SAMI PA Unavailable Unavailable TONTARSKI, G SAMI PA Unavailable Unavailable TONTARSKI, G SAMI PA Unavailable Unavailable TONTARSKI, G SAMI PA Unavailable Unavailable TONTARSKI, G SAMI PA Unavailable Unavailable TONTARSKI, G SAMI PA Unavailable Unavailable TONTARSKI, G SAMI PA Unavailable Unavailable TONTARSKI, G SAMI PA Unavailable Unavailable TONTARSKI, G SAMI PA Unavailable Unavailable TONTARSKI, G SAMI PA Unavailable Unavailable TONTARSKI, G SAMI PA Unavailable Unavailable TONTARSKI, G SAMI PA Unavailable Unavailable TONTARSKI, G SAMI PA Unavailable Unavailable Re-disclosure Warning The records that you are about to access may contain information from federally-assisted alcohol or drug abuse programs. If such information is present, then the following federally mandated warning applies: This information has been disclosed to you from records protected by federal confidentiality rules (42 CFR part 2). The federal rules prohibit you from making any further disclosure of this information unless further disclosure is expressly permitted by the written consent of the person to whom it pertains or as otherwise permitted by 42 CFR part 2. A general authorization for the release of medical or other information is NOT sufficient for this purpose. The Federal rules restrict any use of the information to criminally investigate or prosecute any alcohol or drug abuse patient.The records that you are about to access may contain highly sensitive health information, the redisclosure of which is protected by Article 27-F of the [facility] Public Health law. If you continue you may have access to information: Regarding HIV / AIDS; Provided by facilities licensed or operated by the [facility] Office of Mental Health; or Provided by the [facility] Office for People With Developmental Disabilities. If such information is present, then the following [facility] mandated warning applies: This information has been disclosed to you from confidential records which are protected by state law. State law prohibits you from making any further disclosure of this information without the specific written consent of the person to whom it pertains, or as otherwise permitted by law. Any unauthorized further disclosure in violation of state law may result in a fine or intermediate sentence or both. A general authorization for the release of medical or other information is NOT sufficient authorization for further disc losure. Encounters Encounter Providers Location Date Indications Data Source(s ) Outpatient Attender: SAMI Talavera Buildin marvin 05/12/2020 09:30:00 AM EST [facility] (Jason Posadas MD) Outpatient Attender: SAMI Talavera Buildin marvin 04/15/2020 01:45:00 PM EST [facility] (Jason Posadas MD) Outpatient Attender: SAMI Dwyerin marvin 04/10/2020 01:45:00 PM EST [facility] (Jason Posadas MD) Unknown [address] [facility] [place] [address] 03/25/2020 12:00:00 AM EST eCW1 ([facility]) Unknown [address] [facility] [place] [address] 01/29/2020 12:00:00 AM EDT eCW1 ([facility]) Unknown [address] [facility] [place] [address] 10/15/2019 12:00:00 AM EDT eCW1 ([facility]) Unknown [address] [facility] [place] [address] 10/12/2019 12:00:00 AM EDT eCW1 ([facility]) Unknown [address] [facility] [place] [address] 10/12/2019 12:00:00 AM EDT eCW1 ([facility]) [facility] [address] [place] [address] 10/12/2019 12:00:00 AM EDT eCW1 ([facility]) [facility] [address] [place] [address] 09/13/2019 12:00:00 AM EDT eCW1 ([facility]) Outpatient Attender: Lalo Alexandra/Janice/Jono/Jann davis 09/05/2019 09:40:00 AM EDT [facility] ([facility]) [facility] [address] [place] [address] 09/03/2019 12:00:00 AM EDT eCW1 ([facility]) [facility] [address] [place] [address] 08/31/2019 12:00:00 AM EDT eCW1 ([facility]) [facility] [address] [place] [address] 08/15/2019 12:00:00 AM EDT eCW1 ([facility]) [facility] [address] [place] [address] 07/20/2019 12:00:00 AM EDT eCW1 ([facility]) [facility] [address] [place] [address] 07/19/2019 12:00:00 AM EDT eCW1 ([facility]) [facility] [address] [place] [address] 07/19/2019 12:00:00 AM EDT eCW1 ([facility]) [facility] [address] [place] [address] 06/28/2019 12:00:00 AM EST eCW1 ([facility]) [facility] [address] [place] [address] 06/28/2019 12:00:00 AM EST eCW1 ([facility]) [facility] [address] [place] [address] 06/19/2019 12:00:00 AM EST eCW1 ([facility]) Outpatient 06/14/2019 08:05:00 PM EST [facility] Emergency Attender: CARL Sneedant: FELECIA Carrizales NP 06/14/2019 07:24:00 PM EST - 06/14/2019 10:00:00 PM EST [facility] Patient discharged. Medications Medication Brand Name Start Date Product Form Dose Route Admi nistrative Instructions Pharmacy Instructions Status Indications Reaction Description Data Source(s) Amphetamine aspartate 2.5 MG / Amphetami ne Sulfate 2.5 MG / Dextroamphetamine saccharate 2.5 MG / Dextroamphetamine Sulfate 2.5 MG Oral Tablet [Adderall] Adderall 10 MG Adderall 10 MG 02/13/2020 12:00:00 AM EDT 1.0 {tablet} [facility] Amphetamine aspartate 2.5 MG / Amphetami ne Sulfate 2.5 MG / Dextroamphetamine saccharate 2.5 MG / Dextroamphetamine Sulfate 2.5 MG Oral Tablet [Adderall] Adderall 10 MG Adderall 10 MG 02/13/2020 12:00:00 AM EDT 1.0 {tablet} active Adderall 10 MG [facility]) Amphetamine aspartate 2.5 MG / Amphetami ne Sulfate 2.5 MG / Dextroamphetamine saccharate 2.5 MG / Dextroamphetamine Sulfate 2.5 MG Oral Tablet [Adderall] Adderall 10 MG Adderall 10 MG 10/15/2019 12:00:00 AM EDT 1.0 {tablet} active Adderall 10 MG [facility]) Amphetamine aspartate 2.5 MG / Amphetami ne Sulfate 2.5 MG / Dextroamphetamine saccharate 2.5 MG / Dextroamphetamine Sulfate 2.5 MG Oral Tablet [Adderall] Adderall 10 MG Adderall 10 MG 10/15/2019 12:00:00 AM EDT 1.0 {tablet} active Adderall 10 MG [facility]CW[facility]) Amphetamine aspartate 2.5 MG / Amphetami ne Sulfate 2.5 MG / Dextroamphetamine saccharate 2.5 MG / Dextroamphetamine Sulfate 2.5 MG Oral Tablet [Adderall] Adderall 10 MG Adderall 10 MG 09/13/2019 12:00:00 AM EDT 1.0 {tablet} active Adderall 10 MG [facility]CW[facility]) Amphetamine aspartate 2.5 MG / Amphetami ne Sulfate 2.5 MG / Dextroamphetamine saccharate 2.5 MG / Dextroamphetamine Sulfate 2.5 MG Oral Tablet [Adderall] Adderall 10 MG Adderall 10 MG 09/13/2019 12:00:00 AM EDT active 1 tablet [facility]) Acetaminophen 325 MG / Hydrocodone Bitartrate 5 MG Oral Tabl et [[place]] [place] 09/11/2019 12:00:00 AM EDT ORAL completed [facility] ([facility] ) Ursodiol 300 MG Oral Capsule Ursodiol 300 MG 08/31/2019 12:00:00 AM EDT active Ursodiol 300 MG eCW1 ([facility]) Ursodiol 300 MG Oral Capsule Ursodiol 300 MG 08/31/2019 12:00:00 AM EDT active as directed [facility]) Ursodiol 300 MG Oral Capsule Ursodiol 300 MG 08/31/2019 12:00:00 AM EDT active Ursodiol 300 MG eCW1 ([facility]) Ursodiol 300 MG Oral Capsule Ursodiol 300 MG 08/31/2019 12:00:00 AM EDT active Ursodiol 300 MG eCW1 ([facility]) Ursodiol 300 MG Oral Capsule Ursodiol 300 MG 08/31/2019 12:00:00 AM EDT active as directed [facility]) Ursodiol 300 MG Oral Capsule Ursodiol 300 MG 08/31/2019 12:00:00 AM EDT active as directed [facility] ([facility]) Ursodiol 300 MG Oral Capsule Ursodiol 300 MG 08/31/2019 12:00:00 AM EDT suspended Ursodiol 300 MG eCW1 ([facility]) Amphetamine aspartate 2.5 MG / Amphetami ne Sulfate 2.5 MG / Dextroamphetamine saccharate 2.5 MG / Dextroamphetamine Sulfate 2.5 MG Oral Tablet [Adderall] Adderall 10 MG Adderall 10 MG 08/15/2019 12:00:00 AM EDT active 1 tablet [facility]) Acetaminophen 325 MG / butalbital 50 MG / Caffeine 40 MG Oral Capsule [Esgic] Esgic 50-325-40 MG Esgic 50-325-40 MG 08/15/2019 12:00:00 AM EDT active 1 capsule as needed eCW1 ([facility]) Acetaminophen 325 MG / butalbital 50 MG / Caffeine 40 MG Oral Capsule [Esgic] Esgic 50-325-40 MG Esgic 50-325-40 MG 08/15/2019 12:00:00 AM EDT active 1 capsule as needed eCW1 ([facility]) Amphetamine aspartate 2.5 MG / Amphetami ne Sulfate 2.5 MG / Dextroamphetamine saccharate 2.5 MG / Dextroamphetamine Sulfate 2.5 MG Oral Tablet [Adderall] Adderall 10 MG Adderall 10 MG 07/20/2019 12:00:00 AM EDT active 1 tablet [facility]) Amphetamine aspartate 2.5 MG / Amphetami ne Sulfate 2.5 MG / Dextroamphetamine saccharate 2.5 MG / Dextroamphetamine Sulfate 2.5 MG Oral Tablet [Adderall] Adderall 10 MG Adderall 10 MG 07/19/2019 12:00:00 AM EDT 1.0 {tablet} suspended Adderall 10 MG [facility]CW1 ([facility]) Amphetamine aspartate 2.5 MG / Amphetami ne Sulfate 2.5 MG / Dextroamphetamine saccharate 2.5 MG / Dextroamphetamine Sulfate 2.5 MG Oral Tablet [Adderall] Adderall 10 MG Adderall 10 MG 07/19/2019 12:00:00 AM EDT 1.0 {tablet} suspended Adderall 10 MG [facility]CW1 ([facility]) Amphetamine aspartate 2.5 MG / Amphetami ne Sulfate 2.5 MG / Dextroamphetamine saccharate 2.5 MG / Dextroamphetamine Sulfate 2.5 MG Oral Tablet [Adderall] Adderall 10 MG Adderall 10 MG 07/19/2019 12:00:00 AM EDT 1.0 {tablet} suspended Adderall 10 MG [facility]CW1 ([facility]) Amphetamine aspartate 2.5 MG / Amphetami ne Sulfate 2.5 MG / Dextroamphetamine saccharate 2.5 MG / Dextroamphetamine Sulfate 2.5 MG Oral Tablet [Adderall] Adderall 10 MG Adderall 10 MG 07/19/2019 12:00:00 AM EDT suspended 1 tablet eCW1 ([facility]) Amphetamine aspartate 2.5 MG / Amphetami ne Sulfate 2.5 MG / Dextroamphetamine saccharate 2.5 MG / Dextroamphetamine Sulfate 2.5 MG Oral Tablet [Adderall] Adderall 10 MG Adderall 10 MG 07/19/2019 12:00:00 AM EDT 1.0 {tablet} suspended Adderall 10 MG [facility]CW[facility]) Amphetamine aspartate 2.5 MG / Amphetami ne Sulfate 2.5 MG / Dextroamphetamine saccharate 2.5 MG / Dextroamphetamine Sulfate 2.5 MG Oral Tablet [Adderall] Adderall 10 MG Adderall 10 MG 07/19/2019 12:00:00 AM EDT 1.0 {tablet} suspended Adderall 10 MG eCW1 ([facility]) Amphetamine aspartate 2.5 MG / Amphetami ne Sulfate 2.5 MG / Dextroamphetamine saccharate 2.5 MG / Dextroamphetamine Sulfate 2.5 MG Oral Tablet [Adderall] Adderall 10 MG Adderall 10 MG 07/19/2019 12:00:00 AM EDT active 1 tablet eCW1 ([facility]) Amphetamine aspartate 2.5 MG / Amphetami ne Sulfate 2.5 MG / Dextroamphetamine saccharate 2.5 MG / Dextroamphetamine Sulfate 2.5 MG Oral Tablet [Adderall] Adderall 10 MG Adderall 10 MG 07/19/2019 12:00:00 AM EDT active 1 tablet eCW1 ([facility]) Amphetamine aspartate 2.5 MG / Amphetami ne Sulfate 2.5 MG / Dextroamphetamine saccharate 2.5 MG / Dextroamphetamine Sulfate 2.5 MG Oral Tablet [Adderall] Adderall 10 MG Adderall 10 MG 07/19/2019 12:00:00 AM EDT 1.0 {tablet} suspended Adderall 10 MG eCW1 ([facility]) Amphetamine aspartate 2.5 MG / Amphetami ne Sulfate 2.5 MG / Dextroamphetamine saccharate 2.5 MG / Dextroamphetamine Sulfate 2.5 MG Oral Tablet [Adderall] Adderall 10 MG Adderall 10 MG 07/19/2019 12:00:00 AM EDT suspended 1 tablet eCW1 ([facility]) Amphetamine aspartate 2.5 MG / Amphetami ne Sulfate 2.5 MG / Dextroamphetamine saccharate 2.5 MG / Dextroamphetamine Sulfate 2.5 MG Oral Tablet [Adderall] Adderall 10 MG Adderall 10 MG 07/19/2019 12:00:00 AM EDT 1.0 {tablet} suspended Adderall 10 MG eCW1 ([facility]) Amphetamine aspartate 2.5 MG / Amphetami ne Sulfate 2.5 MG / Dextroamphetamine saccharate 2.5 MG / Dextroamphetamine Sulfate 2.5 MG Oral Tablet [Adderall] Adderall 10 MG Adderall 10 MG 07/19/2019 12:00:00 AM EDT 1.0 {tablet} suspended Adderall 10 MG eCW1 ([facility]) Amphetamine aspartate 2.5 MG / Amphetami ne Sulfate 2.5 MG / Dextroamphetamine saccharate 2.5 MG / Dextroamphetamine Sulfate 2.5 MG Oral Tablet [Adderall] Adderall 10 MG Adderall 10 MG 07/19/2019 12:00:00 AM EDT suspended 1 tablet eCW1 ([facility]) Amphetamine aspartate 2.5 MG / Amphetami ne Sulfate 2.5 MG / Dextroamphetamine saccharate 2.5 MG / Dextroamphetamine Sulfate 2.5 MG Oral Tablet [Adderall] Adderall 10 MG Adderall 10 MG 07/19/2019 12:00:00 AM EDT suspended 1 tablet eCW1 ([facility]) Oseltamivir 75 MG Oral Capsule [Tamiflu] Tamiflu 75 MG Tamif aaron 75 MG 06/28/2019 12:00:00 AM EST suspended 1 cap judy [facility] Oseltamivir 75 MG Oral Capsule [Tamiflu] Tamiflu 75 MG Tamif aaron 75 MG 06/28/2019 12:00:00 AM EST suspended 1 cap judy [facility]CW1 ([facility]) Oseltamivir 75 MG Oral Capsule [Tamiflu] Tamiflu 75 MG Tamif aaron 75 MG 06/28/2019 12:00:00 AM EST 1.0 {capsule} suspended Tamiflu 75 MG [facility]CW1 ([facility]) Oseltamivir 75 MG Oral Capsule [Tamiflu] Tamiflu 75 MG Tamif aaron 75 MG 06/28/2019 12:00:00 AM EST 1.0 {capsule} suspended Tamiflu 75 MG [facility]CW1 ([facility]) Oseltamivir 75 MG Oral Capsule [Tamiflu] Tamiflu 75 MG Tamif aaron 75 MG 06/28/2019 12:00:00 AM EST suspended 1 cap judy eCW1 ([facility]) Oseltamivir 75 MG Oral Capsule [Tamiflu] Tamiflu 75 MG Tamif aaron 75 MG 06/28/2019 12:00:00 AM EST 1.0 {capsule} suspended Tamiflu 75 MG [facility]CW1 ([facility]) Oseltamivir 75 MG Oral Capsule [Tamiflu] Tamiflu 75 MG Tamif aaron 75 MG 06/28/2019 12:00:00 AM EST active 1 capsul e [facility]CW1 ([facility]) Oseltamivir 75 MG Oral Capsule [Tamiflu] Tamiflu 75 MG Tamif aaron 75 MG 06/28/2019 12:00:00 AM EST 1.0 {capsule} suspended Tamiflu 75 MG [facility]CW1 ([facility]) Insurance Providers Payer name Policy type / Coverage type Policy ID Covered libertarian ID Covered libertarian's relationship to ledezma Policy Ledezma Plan Information [facility] [employer] [id number] [facility] [id number] [facility] [employer] [id number] [facility] [id number] [facility] [employer] [id number] [facility] [employer] - O/P [id number] ANSI-Not a Secondary Insurance [id number] ANSI-Not a Secondary Insurance [id number] Problems, Conditions, and Diagnoses Code Display Name Description Problem Type Effective Dates Data Source(s) K80.20 Cholelithiasis Cholelithiasis Problem 08/31/2019 12:00: 00 AM EDT [facility]) K80.20 Cholelithiasis Cholelithiasis Problem 08/31/2019 12:00: 00 AM EDT [facility]) F90.9 [id number] Adult ADHD Problem 08/15/2019 12:00:00 AM ED T [facility]CW1 [facility]) O29.292 [id number] Other central nervou s system complications of anesthesia during , second trimester Problem 08/15/2019 12:00:00 AM ED T eCW1 ([facility] [facility] F90.9 [id number] Adult ADHD Problem 08/15/2019 12:00:00 AM ED [facility] O29.292 [id number] Other central nervou s system complications of anesthesia during , second trimester Problem 08/15/2019 12:00:00 AM ED T [facility] Z3A.11 [id number] 11 weeks gestation of Problem 06/28/2019 12:00:00 AM EST [facility] Z3A.11 [id number] 11 weeks gestation of Problem 06/28/2019 12:00:00 AM EST [facility] Z34.80 care Supervision of other normal P roblem 06/15/2019 12:00:00 AM EST [facility] Z34.80 care Supervision of other normal P roblem 06/15/2019 12:00:00 AM EST [facility] Z3A09 9 weeks gestation of 9 weeks gestation of pr egnancy Diagnosis 06/14/2019 07:24:00 PM [facility] O208 Other hemorrhage in early Other hemorr torsten in early Diagnosis 06/14/2019 07:24:00 PM [facility] Surgeries/Procedures Procedure Description Date Indications Data Source(s) SUBSEQUENT CARE VISIT 09/13/2019 12:00:00 AM EDT [facility] OB Visit 08/15/2019 12:00:00 AM EDT e CW[facility] URINE-NO MICRO 06/28/2019 12:00:00 AM EST [facility] REAGENT STRIP/BLOOD GLUCOSE 06/28/2019 12:00:00 AM EST [facility] Influenza A+B 06/28/2019 12:00:00 AM EST [facility] Results ID Date Data Source [id number] 05/18/2020 10:00:00 AM EST [facility] Name Value Range Interpretation Code Description Data Betina rce(s) Supporting Document(s) SARS coronavirus 2 RNA Not Detected [facility] [place] This lab was ordered by [facility] and reported by [facility]. ID Date Data Source [id number] 02/21/2020 12:00:00 AM EDT [facility] Name Value Range Interpretation Code Description Data Betina rce(s) Supporting Document(s) [facility] ordered by [facility] and reported by [facility] ID Date Data Source [id number] 09/11/2019 10:13:00 AM EDT [facility] Name Value Range Interpretation Code Description Data Betina rce(s) Supporting Document(s) Surgical pathology study Laboratory test result [facility] ([facility], ) FINAL DIAGNOSIS Gallbladder and content, cholecystectomy: Cholelithiasis. Chronic cholecystitis 09/12/2019949 CLINICAL DIAGNOSIS Gallstones 09/11/2019 - 1520 GROSS DIAGNOSIS Received in formalin labeled "gallbladder and content" consists of a gallbladder measuring 8.5 x 3 x 2 cm. The gallbladder is opened to reveal multiple gallstones measuring from 0.3 to 1.0 cm. The mucosal surface is grossly unremarkable. No polyp or mass lesion is identified. Auto Striper sections are submitted in one. -OA 09/12/2019949 Signed HAKAN BONILLA MD 09/12/2019949 ID Date Data Source [id number] 09/08/2019 08:30:00 AM EDT [facility] ([facility]) Name Value Range Interpretation Code Description Data Betina rce(s) Supporting Document(s) Laboratory test finding (navigational concept) Laboratory test result [facility] ([facility], ) Testing was performed using the carmine(R) SARS-CoV-2 test. This test was developed and its performance characteristics determined by [employer]. This test has not been FDA cleared or approved. This test has been authorized by FDA under an Emergency Use Authorization (EUA). This test is only authorized for the duration of time the declaration that circumstances exist justifying the authorization of the emergency use of in vitro diagnostic tests for detection of SARS-CoV-2 virus and/or diagnosis of COVID-19 infection under section 564(b)(1) of the Act, 21 U.S.C. 360bbb-3(b)(1), unless the authorization is terminated or revoked sooner. When diagnostic testing is negative, the possibility of a false negative result should be considered in the context of a patient's recent exposures and the presence of clinical signs and symptoms consistent with COVID-19. An individual without symptoms of COVID-19 and who is not shedding SARS-CoV-2 virus would expect to have a negative (not detected) result in this assay. Performed at: [address] [id number] Transportation Director: Erlinda Quinteros MD, Phone: [phone] Not Detected ID Date Data Source [id number] 09/08/2019 08:30:00 AM EDT [facility] Name Value Range Interpretation Code Description Data Betina rce(s) Supporting Document(s) SARS CORONAVIRUS 2 RNA [facility] This lab was ordered by [facility] and reported by [facility]. ID Date Data Source [id number] 07/31/2019 02:01:00 PM EDT [facility] Name Value Range Interpretation Code Description Data Betina rce(s) Supporting Document(s) SARS CORONAVIRUS 2 RNA [facility] This lab was ordered by [facility] and reported by [facility]. ID Date Data Source HEPATITIS C ANTIBODY INDEX 07/11/2019 12:00:00 AM EST [facility] Name Value Range Interpretation Code Description Data Betina rce(s) Supporting Document(s) 0.0 <0.8 HEPATITIS C VIRUS ELEANOR INDEX eC W1 [facility]) ID Date Data Source RUBELLA IMMUNE STATUS IgG 07/11/2019 12:00:00 AM EST eCW1 ([facility]) Name Value Range Interpretation Code Description Data Betina rce(s) Supporting Document(s) IMMUNE IMMUNE RUBELLA IgG QUALITATIVE [facility]) ID Date Data Source SYPHILIS ANTIBODY (RPR SCREEN) 07/11/2019 12:00:00 AM EST eC W1 [facility] Name Value Range Interpretation Code Description Data Betina rce(s) Supporting Document(s) NONREACTIVE NONREACTIVE SYPHILIS eCW1 ([facility]) ID Date Data Source CHLAMYDIA & GC DNA AMPLIFICAT 07/11/2019 12:00:00 AM EST [facility]CW [facility] Name Value Range Interpretation Code Description Data Betina rce(s) Supporting Document(s) Chlamydia trachomatis rRNA [Presence] in Unspecified specimen by Probe and target amplification method NEGATIVE NEGATIVE CHLAMYDIA DNA AMPLIFICATION [facility]CW1 [facility]) ID Date Data Source CBC - Complete Blood Count 07/11/2019 12:00:00 AM EST [facility] Name Value Range Interpretation Code Description Data Betina rce(s) Supporting Document(s) 13.8 12.0-15.5 HEMOGLOBIN eCW1 ([facility]) 4.2 4.0-10.0 WHITE BLOOD COUNT eCW1 ([facility]) 42.8 36.0-47.0 HEMATOCRIT eCW1 ([facility]) 4.75 4.00-5.40 RED BLOOD COUNT eCW1 ([facility]) 90.1 80.0-96.0 MEAN CORPUSCULAR VOLUME e CW1 ([facility]) 29.1 27.0-33.0 MEAN CORPUSCULAR HEMOGLOB IN eCW1 ([facility]) 12.8 11.5-14.5 RED CELL DISTRIBUTION WID TH eCW1 ([facility]) 32.2 32.0-36.5 MEAN CORPUSCULAR HGB CONC eCW1 [facility]) 266 150-450 PLATELET COUNT, AUTOMATED eCW1 [facility]) ID Date Data Source Type and Screen Prenatal1 07/11/2019 12:00:00 AM EST eCW1 ([facility]) Name Value Range Interpretation Code Description Data Betina rce(s) Supporting Document(s) NEGATIVE AB SCREEN PNP1 GEL (VIS) [facility]CW1 [facility] ID Date Data Source [id number] 06/14/2019 07:24:00 PM EST [facility] 1 OrderSheet [facility] Emergency Department [address] [place] [address] Phone #: ext- [phone] 06/14/2019 19:08 Patient: KHRIS PETERSEN Sex: F : 1990 Age: 29yWEIGHT:68.0 kg (S) HEIGHT:64 inches (S) BMI:25.8ALLERGIES: No Known Drug AllergyCHIEF COMPLAINT: vag bleeding, pelvic painDIAGNOSIS: Patient currently LAB ORDERSOrder Description Priority Entered Acknowledged InitialedCBC w Diff STAT 20:05 06/14/2019 20:14 Zoss, August Turrin, Carl R.N. M.D.;CMP STAT 20:06/14/2019 20:14 Zoss, August Turrin, Carl R.N. M.D.;Culture, Urine STAT 20:06/14/2019 20:14 Zoss, August(Urine, Clean Turrin, Carl R.N.Catch) Reed.Seymour;Type Rh STAT 20:06/14/2019 20:14 Zoss, Gladys Turrin, Carl R.N. M.D.;Urinalysis (Clean STAT 20:06/14/2019 20:14 Zoss, AugustCatch) Rosemarie, Carl R.N. M.D.;HCG Serum Quant STAT 20:06/14/2019 20:14 Zoss, August Turrin, Carl R.N. M.D.;DIAGNOSTIC STUDY ORDERSOrder Description Priority Entered Acknowledged InitialedUS OB 1ST TRI UP STAT 20:06/14/2019 20:14 Zoss, AugustTO 14 WEEKS Turrin, Carl R.N.(Oxygen?(No)) Yoselin;(IV?(No)) Reason for Study: LMP: 12-7-19 EDC: 15-20 8 weeks, bleeding and crampingUS OB STAT 20:07 06/14/2019 Initialed: 20:14 Zoss, August R.N.TRANSVAGINAL Carl Heart Cancelled: Physician Order 21:32 Rosemarie, JOSE RAMON Wyatt; Carl Wyatt(IV?(No)) 2 OrderSheet [facility] Emergency Department [address] [place] [address] Phone #: ext- [phone] 06/14/2019 19:08 Patient: KHRIS PETERSEN Sex: F : 1990 Age: 29y(Oxygen?(No)) Reason for Study: , LMP: 04-14-19 EDC: 01-22-20, 8 weeks, bleeding, crampingMEDICATION/IV/DRIP/FLUID ORDERSOrder Description Priority Entered Acknowledged InitialedGENERAL ORDERSOrder Descri ption Priority Entered Acknowledged InitialedNPO 20:05 06/14/2019 20:14 Gladys Thomas Riccardo R.N. M.D.;[Electronically signed by Gladys Thomas R.N. (:06/14/2019)][Electronically signed by Carl Heart M.D. (22:58 06/14/2019)][Electronically locked by Gladys Thomas R.N. (:06/14/2019)] Name Value Range Interpretation Code Description Data Betina rce(s) Supporting Document(s) ID Date Data Source [id number] 06/14/2019 07:24:00 PM EST [facility] 1 Medication Reconciliation Report [facility] Emergency Department [address] [place] [address] Phone #: ext- [phone] 06/14/2019 19:08 Patient: KHRIS PETERSEN Sex: F : 1990 Age: 29yWeight: 68.0 kgHeight/Length: 64 in.BMI: 25.8ALLERGIES: No Known Drug AllergyThe patient's Home Medications are listed below:CONTINUE TAKING THE FOLLOWING MEDICATIONS: Acetaminophen Oral (500 mg) 1 tablet, last dose: 1000, prn Citalopram Hydrobromide Oral (40 mg) 1 tablet, dailyThe sourc e(s) of the original Home Medication information:Not obtained.The following Medications were given to the patient in the Emergency Department:None.The following Medications were prescribed to the patient:None. Name Value Range Interpretation Code Description Data Betina rce(s) Supporting Document(s) ID Date Data Source [id number] 06/14/2019 07:24:00 PM [facility] 1 Medication Administration Record [facility] Emergency Department [address] [place] [address] Phone #: ext- [phone] 06/14/2019 19:08 Patient: KHRIS PETERSEN Sex: F : 1990 Age: 29yWeight: 68.0 kgHeight/Length: 64 inBMI: 25.8ALLERGIES: No Known Drug AllergyDate/Time Medication Administered Medication Ordered Name Value Range Interpretation Code Description Data Betina rce(s) Supporting Document(s) ID Date Data Source [id number] 06/14/2019 07:24:00 PM [facility] 1 General Instructions [facility] Emergency Department [address] [place] [address] Phone #: ext- [phone] 06/14/2019 19:08 Patient: KHRIS PETERSEN Sex: F : 1990 Age: 29yFirst trimester . (1st trimester bleeding).INSTRUCTIONSNo strenuous activity until better.Drink plenty of fluids. Do not smoke. No alcohol.Warnings: Further evaluation is necessary (by REMOTE SENSING SURVEYOR). It is very important to follow up with a healthcareprovider.GENERAL WARNINGS: Return or contact your physician immediately if your condition worsens orchanges unexpectedly, if not improving as expected, or if other problems arise. Specifically return if pain,vomiting, bleeding, breathing difficulty or fever greater than 102 degrees F and not controlled byacetaminophen worsens.Your Current Medications: Your current home medications have been reviewed.CONTINUE TAKING THE FOLLOWING MEDICATIONS:Acetaminophen Oral : Tablet 500 mg, 1 tablet, Last: 1000, prn.Citalopram Hydrobromide Oral : Tablet 40 mg, 1 tablet daily.Follow-up:Return to the emergency department as needed. Follow up with an ship boss in three days even if well.Call for an appointment. Reason for referral: evaluation and treatment. Summary of care provided topatient via paper.Understanding of the discharge instructions verbalized by patient. Expected course of illness, dischargeinstructions, activity level, diet, follow- up appointment and risks and benefits of treatment reviewed withpatient and understanding verbalized. Agrees to plan of care.Follow-up with: [facility], , , [address] [place] [address], [id number] Follow up in three days even if well. Call for an appointment. Reason for referral: evaluation andtreatment. Summary of care provided to patient via paper. ADDITIONAL INFORMATIONPregnancy 2 General Instructions [facility] Emergency Department [address] [place] [address] Phone #: ext- [phone] 06/14/2019 19:08 Patient: KHRIS PETERSEN Sex: F : 1990 Age: 29yYour exam today shows that you are . symptomsDuring your body's hormones change. This causes physical and emotional changes. Thisis normal. Knowing what to expect is important for your piece of mind and so you know when to seekhelp for a problem. Here are some of the most common symptoms: Morning sickness or nausea. This can happen any time of the day or night. Tender, swollen breasts Need to urinate frequently Tiredness or fatigue Dizziness Indigestion or heartburn Food cravings or turn-offs Constipation Emotional changes. This can range from anxiety to excitement to depression.General care for a healthy 3 General Instructions [facility] Emergency Department [address] [place] [address] Phone #: ext- [phone] 06/14/2019 19:08 Patient: KHRIS PETERSEN Sex: F : 1990 Age: 29yHere are things you can do to help make sure your baby is born healthy: Rest when you feel tired. This is especially true in the later months of . Drink more fluids. Your body needs more fluids than you may be used to. Drink 8 to10 glasses of juice, milk, or water every day. Eat well-balanced meals. Eat at regular times to give your body enough protein. You can expect to gain about 30 pounds during the . Don't try to diet or lose weight while you are . Take a vitamin every day. This helps you meet the extra nutritional needs of . Don't take any other medicine during your unless your healthcare provider tells you to. This includes prescription medicines and those you buy over the counter. Many medicines can harm the growing baby. If you have nausea or vomiting, don't eat greasy or fried foods. Eat several smaller meals throughout the day rather than 3 large meals. If you smoke, you must stop. The nicotine you breathe in goes right to the baby. Stay away from alcohol, even in moderate amounts. Daily drinking will harm your baby and can cause permanent brain damage. Don't use recreational drugs, especially cocaine, crack, and heroin. These will harm your baby. Also avoid marijuana. If you were using recreational drugs or prescribed medicine when you found out that you were , talk with your healthcare provider about possible effects on your growing baby. If you have medical problems that you need to take medicine for, talk with your healthcare provider.Follow-up careCall your healthcare provider to arrange for care. care is important. You can seeyour family provider, a specialist (ship boss), or a primary care clinic.When to seek medical adviceCall your healthcare provider right away if any of these occur: Vaginal bleeding Pain in your belly (abdomen) or back that is moderate or severe 4 General Instructions [facility] Emergency Department [address] [place] [address] Phone #: [phone]- [phone] 06/14/2019 19:08 Patient: KHRIS PETERSEN Sex: F : 1990 Age: 29y Lots of vomiting, or you can't keep any fluids down for 6 hours Burning feeling when you urinate Headache, dizzines s, or rapid weight gain Fever Vision changes or blurred vision 1999- 2017 [employer]. [address] [place] [address]. All rights reserved. This information is not intended as asubstitute for professional medical care. Always follow your healthcare professional's instructions. You have been given the following additional information: , New Dx No strenuous activity until better.(Electronically signed by Carl Heart M.D. 06/14/2019 22:58) Name Value Range Interpretation Code Description Data Betina rce(s) Supporting Document(s) ID Date Data Source [id number] 06/14/2019 07:24:00 PM EST [facility] 1 Clinical Report - Nurses [facility] Emergency Department [address] [place] [address] Phone #: ext- [phone] 06/14/2019 19:08 Patient: KHRIS PETERSEN Sex: F : 1990 Age: 29yTRIAGEArrived by private vehicle. Historian: patient.Triage time: 19:08 06/14/2019. Acuity: LEVEL 4.Chief Complaint: ABDOMINAL CRAMPS.19:08 06/14/19. Alert. No acute distress.Onset. (pelvic cramping began 06/09, bleeding began today). ( "Soaked through pants, has used one pad").SEPSIS SCREEN: NEGATIVE. Negative (no infection suspected/documented). --19:16 06/14/19 KENRICK Munguia19:06/14/19. BP: 115/77. MAP: 89. HR: 89. RR: 18. O2 saturation: 97%. Temp: 97.2 F. Pain level now:8/10. (cramping). It has been constant. Pain level at maximum: 8/10. No radiation noted. No provoking /relieving factors. --19:16 06/14/19 Reena Parker RN.Weight: 68 kg stated. Height/Length: 64 inches Per Patient. BMI: 25.8. --19:07 06/14/19 Reena Parker RN.MedicationsAcetaminophen Oral (Tablet 500 mg) 1 tablet, as needed, last dose 1000. --19:15 06/14/19 KENRICK Munguia Citalopram Hydrobromide Oral (Tablet 40 mg) 1 tablet, daily. --19:15 06/14/19 Reena Parker RN.AllergiesNo Known Drug Allergy. --19:15 06/14/19 Reena Parker RN.PROBLEMS:Anxiety Reaction.ADHD - Attention Deficit Hyperactivity Disorder.Depression. --19:16 06/14/19 Reena Parker RN.ADDITIONAL SURGERIES:Arm surgery.Knee Surgery. --19:16 06/14/19 Reena Parker RN.Difbhrp34:06/14/19.PAST MEDICAL HX: Last normal menstrual period- Apr 14, 2019. Currently . OB history: G 2; P1. 2 Clinical Report - Nurses [facility] Emergency Department [address] [place] [address] Phone #: ext- [phone] 06/14/2019 19:08 Patient: KHRIS PETERSEN Sex: F : 1990 Age: 29y SOCIAL HX: Never smoker. No alcohol use or drug use. The patient was offered HIV testing but declined and hepatitis C testing but declined. The patient has not traveled outside the [place] Infectious disease exposure: No infectious disease exposure. Patient is not a known carrier of tuberculosis, hepatitis, HIV, MRSA or VRE. Patient is not a known carrier of CRE. SELF HARM ASSESSMENT: Self harm assessment was performed. The patient answered "no" to the question(s) "Do you have thoughts of harming or killing yourself?" and "Do you have a plan for harming or killing yourself?". ABUSE ASSESSMENT: Abuse assessment. The patient had positive responses to the question(s) "Do you feel safe in your home?" (yes). No report of abuse. NUTRITIONAL RISK ASSESSMENT: The nutritional risk assessment revealed no deficiencies. FUNCTIONAL ASSESSMENT: Functional assessment: no impairments noted. LEARNING NEEDS ASSESSMENT: The learning needs assessment revealed no barriers. FALL RISK ASSESSMENT: Fall risk assessment completed. No risk factors identified. SKIN INTEGRITY ASSESSMENT: Skin integrity risk assessment completed. No skin integrity risk identified. --19:16 06/14/19 Do paolo Parker RN.PHYSICAL ASSESSMENTGENERAL / NEURO / PSYCH: Alert. Oriented X 4. Appears in no acute distress.HEENT: Mucous membranes are pink.RESPIRATORY: Respirations not labored.CVS: Capillary refill less than 2 seconds.GI / : Vaginal bleeding present (started brown, turned to red).SKIN: Skin is warm and dry. --20:15 06/14/19 Gladys Thomas RAudieNAudieNURSING PROGRESS NOTES20:00 06/14/19. Patient gowned. Head of bed elevated. Reassurance given. Bed placed in lowestposition. Brakes of bed on. Patient ready for evaluation- ED physician notified. --20:15 06/14/19 Gladys Thomas R.N. 20:05 06/14/19. Patient ID band checked for patient name and birthdate: patient confirmed. Instructions provided to collect clean catch urine and patient verbalized understanding. Clean catch urine collected with return of yellow-colored clear urine; sample sent to lab for urinalysis. Specimen labeled in the presence of the patient. --20:16 06/14/19 Gladys Thomas R.N. ( botany laboratory assistant to bedside to draw blood). --20:16 06/14/19 Gladys Thomas R.N. 21:18 06/14/19. Patient transported to radiology by wheelchair with veterinary technician. --21:43 06/14/19 3 Clinical Report - Nurses [facility] Emergency Department [address] [place] [address] Phone #: ext- [phone] 06/14/2019 19:08 Patient: KHRIS PETERSEN Sex: F : 1990 Age: 29y Gladys Thomas R.N. 21:38 06/14/19. Patient returned from radiology by wheelchair with veterinary technician. --21:43 06/14/19 Gladys Thomas R.N. ( Physician to bedside to discuss plan of care.). --21:43 06/14/19 Gladys Thomas R.N.DISPOSITION / DISCHARGE 21:58 06/14/19. BP: 101/64. HR: 74. RR: 16. O2 saturation: 100%. Temp: 98.8 F. Pain level now 8/10. --21:59 06/14/19 Tiffanie Valdez R.N. 22:00 06/14/19. Condition at departure: improved and stable. No learning barriers present. Discharge instructions provided and reviewed with the patient. Follow up contact number OB. Patient verbalized understanding. Written instructions provided in Greenlandic. The patient was discharged by the physician. She was discharged home. She left ambulatory and via private vehicle. Patient driving. --22:09 06/14/19 Gladys Thomas R.N.Locked/Released at 06/14/2019 22:09 by Gladys Thomas R.N. Name Value Range Interpretation Code Description Data Betina rce(s) Supporting Document(s) ID Date Data Source [id number] 06/14/2019 07:24:00 PM [facility] 1 Clinical Report - Physicians/Mid Levels [facility] Emergency Department [address] [place] [address] Phone #: ext- [phone] 06/14/2019 19:08 Patient: KHRIS PETERSEN Sex: F : 1990 Age: 29y Time Seen: 19:51 06/14/2019; initial patient contact. Arrived- By private vehicle. Historian- patient. Disposition decision: 21:46 06/14/2019.HISTORY OF PRESENT ILLNESS Chief Complaint: PELVIC PAIN and VAGINAL BLEEDING. This started today pelvic cramping x 5 days, bleeding today, mild and still present. It has been intermittent. The symptoms are described as mild. Modifying factors. Not worsened by anything. Not relieved by anything. The patient has had mild, intermittent, crampy suprapubic pelvic pain. She has had abnormal bleeding described as manager pricing than normal period. The bleeding has required use of about 1 pad per day. No abdominal pain, vaginal pain, low back pain, flank pain or missed period(s). No irregular periods, vaginal discharge, vaginal itching, genital lesions or pain with urination. No urinary frequency, urgency of urination or hematuria. Currently : LNMP: 04-14-19 EDC: 01-22-20 8w4d. In 1st trimester. confirmed with home test. Has had no care. G 2. P 1. Similar symptoms previously. None. Recent medical care: Not recently seen/assessed.REVIEW OF SYSTEMSThe patient has had mild nausea. No vomiting, diarrhea, black stools, headache or fever. No chills,anorexia, eye discomfort, sore throat or cough. No difficulty breathing, chest pain, skin rash, enlargedlymph nodes or joint pain. All other systems reviewed and are negative.PAST HISTORYSee nurses notes. Problems: . Anxiety Reaction. ADHD - Attention Deficit Hyperactivity Disorder. Depression. Additional Surgeries: Arm surgery. Knee Surgery. Medications: Citalopram Hydrobromide Oral (Tablet 40 mg) 1 tablet, daily. 2 Clinical Report - Physicians/[facility] Emergency Department [address] [place] [address] Phone #: ext- [phone] 06/14/2019 19:08 Patient: KHRIS PETERSEN Sex: F : 1990 Age: 29y Acetaminophen Oral (Tablet 500 mg) 1 tablet, as needed, last dose 1000. Allerg ies: No Known Drug Allergy.SOCIAL HISTORYNever smoker. No alcohol use or drug use.ADDITIONAL NOTESThe nursing notes have been reviewed with agreement regarding the chief complaint, HPI, ROS, PMH andpatient medications and allergies.PHYSICAL EXAMVital Signs: 06/14/2019 19:08 BP: 115/77. MAP: 89. HR: 89. RR: 18. O2 saturation: 97%. Temp: 97.2 F.Pain level now: 8/10. Have been reviewed. Oxygen saturation normal.Appearance: Alert. Oriented X3. No acute distress.HEENT: Normal external inspection.ENT: Pharynx normal.Neck: Neck supple.CVS: Heart sounds normal.Respiratory: No respiratory distress. Painless inspiration. Breath sounds normal. Chest nontender.Abdomen: Soft. Mild tenderness in the suprapubic area and lower abdomen. No guarding or reboundtenderness. Bowel sounds normal. No organomegaly. No mass.Back: Normal external inspection. No CVA tenderness.Skin: Skin warm and dry. Normal skin color. No rash. Normal skin turgor.Extremities: Extremities nontender. No lower extremity edema.Neuro: Oriented X 3. Mood/affect normal. No motor deficit. No sensory deficit.LABS, X-RAYS, AND EKGPelvic Sonogram: REPORT SUBMISSION DATE: Jun 14, 2019 10:54:18 PM EST NAME: KHRIS PETERSEN STUDY INITIATED: Jun 14, 2019 8:56:32 PM EST STUDY RECEIVED: Jun 14, 2019 10:16:57 PM EST GENDER: F MODALITY TYPE: US\\SR : 89 DESCRIPTION: US OB 1ST TRI UP TO 14 WEEKS INSTITUTION: [facility] ORDERING PHYSICIAN: Carl Heart PATIENT HISTORY: ULTRASOUND PELVIS TRANSABDOMINAL 3 Clinical Report - Physicians/Mid Levels [facility] Emergency Department [address] [place] [address] Phone #: ext- [phone] 06/14/2019 19:08 Patient: KHRIS PETERSEN Sex: F : 1990 Age: 29yCOMPARISON: NoneHISTORY: BLEEDING AND CRAMPINGTECHNIQUE:Ultrasound images through the pelvis obtained via transabdominal approach.FINDINGS:Single live intrauterine gestation identified, 8 weeks and 3 days by crown-rump length. EDC 01/19/2020. heart rate 176 beats per minute. No perigestational hemorrhage. Cervix is closed measuring 3.1 cm.Doppler flow is detected in the ovaries bilaterally. No adnexal mass or free fluid.ImpressionSingle live intrauterine gestation, 8 weeks and 3 days by crown- rump length.Electronically signed on Jun 14, 2019 10:54:18 PM EST by:Brittnee Franco, [place] [employer]. Study type: obstetrical evaluation. The study was interpretedby the radiologist.Laboratory Tests: Laboratory tests have been ordered, with results reviewed and considered in themedical decision making process.US OB TRANSVAGINAL JOSE RAMON: (GIULIANO: 06/14/2019 20:07) ( MsgRcvd 06/14/2019 21:32) CanceledReason(s): , LMP: 04-14-19 EDC: 20, 8 weeks, bleeding, crampingReason(s): , LMP: 12 EDC: 9-15-20, 8 weeks, bleeding, crampingTRANSPORTATION: WC IV? IV?(No) O2? Oxygen?(No) Roo: YesCBC w Diff: (GIULIANO: 06/14/2019 20:11) ( MsgRcvd 06/14/2019 20:26) Final results Test Result Flag Units (Reference) CBC W/AUTOMATED DIFF COMPLETE BLOOD COUNT WBC 8.9 10/uL (4.2 - 11.0) RBC 4.14 L 10/uL (4.20 - 5.40) HEMOGLOBIN 12.0 g/dL (12.0 - 16.0) HEMATOCRIT 36.6 L % (37.0 - 47.0) MCV 88.4 fL (81.0 - 101) MCH 29.0 pg (27.0 - 34.0) MCHC 32.8 g/dL (31.0 - 36.0) RDW 12.5 % (11.5 - 14.5) PLATELETS 283 10/uL (150 - 450) MPV 10.5 H fL (7.4 - 10.4) NEUT 53.6 % (37.0 - 80.0) LYMPH 39.5 % (25.0 - 40.0) MONO 6.2 % (3.0 - 8.0) EOS 0.3 % (0.0 - 7.0) BASO 0.1 % (0.0 - 2.5) %IG 0.3 H % (0.0 - 0.0) %NRBC 0.0 % (0.0 - 0.0) #NEUT 4.77 10/uL (2.00 - 6.90) 4 Clinical Report - Physicians/Mid Levels [facility] Emergency Department [address] [place] [address] Phone #: ext- [phone] 06/14/2019 19:08 Patient: KHRIS PETERSEN Sex: F : 1990 Age: 29y #LYMPH 3.52 H 10/uL (0.60 - 3.40) #MONO 0.55 10/uL (0.00 - 0.90) #EOS 0.03 10/uL (0.00 - 0.70) #BASO 0.01 10/uL (0.00 - 0.20) #IG 0.03 10/uL (0.00 - 0.10) #NRBC 0.00 10/uL (0.00 - 0.00) MANUAL DIFF NOT INDICATED RBC MORPH NOT INDICATEDCMP: (GIULIANO: 06/14/2019 20:11) ( MsgRcvd 06/14/2019 20:47) Final results Test Result Flag Units (Reference) COMPREHENSIVE METABOLIC PANEL COMPREHENSIVE METABOLIC PANEL SODIUM 136 mEq/L (134 - 153) POTASSIUM 4.4 mEq/L (3.6 - 5.0) CHLORIDE 100 mEq/L (98 - 107) CO2 25 MEQ/L (22 - 30) GLUCOSE 101 MG/DL (65 - 110) BUN 11 MG/DL (7 - 21) CREATININE 0.5 L MG/DL (0.7 - 1.5) BUN/CREAT 22 (8 - 27) TOTAL PROTEIN 6.8 G/DL (6.3 - 8.2) ALBUMIN 4.3 G/DL (3.9 - 5.0) GLOBULIN 2.5 GM/DL (2.4 - 3.2) A/G RATIO 1.7 (0.8 - 2.0) CALCIUM 9.5 MG/DL (8.4 - 10.2) TOTAL BILI <0.7 MG/DL (0.2 - 1.3) ALKALINE PHOS 71 U/L (38 - 126) SGOT/AST 14 U/L (5 - 40) SGPT/ALT 11 U/L (7 - 56) ANION GAP 11.0 mmol/L (8.0 - 16.0) AGE 29 yrs NON-AA GFR >60 mL/min AFR AMER GFR >60 mL/min Male GFR Interprentation 20-49 yrs >60 mL/min Jrwxzz73-22 yrs >56 mL/min Normal 60-69 yrs >49 mL/min Normal 70-79yrs>42 mL/min Normal 80 and above >35 mL/min Normal Female GFRInterpretation 20-39 yrs >60 mL/min Normal 40-49 yrs >58 mL/minNormal 50-59 yrs >51 mL/min Normal 60-69 yrs >45 mL/min Vbiait68-45 yrs >39 mL/min Normal 80 and above >32 mL/min NormalType Rh: (GIULIANO: 06/14/2019 20:11) ( [facility] 06/14/2019 20:50) Final results Test Result Flag Units (Reference) ABO GROUP O RH TYPE POSITIVE { ABO/RH REENTER O POSITIVEUrinalysis: (GIULIANO: 06/14/2019 20:05) ( [facility] 06/14/2019 20:17) Final results Test Result Flag Units (Reference) URINALYSIS URINALYSIS SOURCE R COLOR yellow (NORMAL: Yello CLARITY clear (NORMAL: Clear SPEC GRAVITY 1.015 (1.001 - 1.030 pH 6 (5 - 9) GLUCOSE NORM (NORMAL: Negat BILIRUBIN NEG (NORMAL: Negat KETONE NEG (NORMAL: Negat PROTEIN NEG (NORMAL: Negat NITRITE NEG (NORMAL: Negat BLOOD NEG (NORMAL: Negat LEUK EST 25 (NORMAL: Negat 5 Clinical Report - Physicians/Mid Levels [facility] Emergency Department [address] [place] [address] Phone #: ext- [phone] 06/14/2019 19:08 Patient: KHRIS PETERSEN Sex: F : 1990 Age: 29y UROBILINOGEN NOR (less than 1.0 MICROSCOPIC See Below WBC 1 - 3 (NORMAL: NONE RBC None Seen (NORMAL: NONE EPITHELIAL MODERATE A (NORMAL: NONE BACTERIA Trace (NORMAL: NONE Beta-HCG, Quant Serum: (GIULIANO: 06/14/2019 20:11) ( MsgRcvd 06/14/2019 21:01) Final results Test Result Flag Units (Reference) HCG QUANT 82214.0 mIU/mL Interpretation: Less than 5 mU/mL: Negative 6-10 mU/mL: Borderline (suggest repeat in 48 hours) >10: Positive Approx HCG range (mU/mL) Weeks post LMP 5.4-708 mU/mL 3-4 Weeks 217-43219 mU/mL 5-6 Weeks 4059-563895 mU/mL 7-8 Weeks 50951-312337 mU/mL 9-10 Weeks 26729-76062 mU/mL 12-14 Weeks 73601-16836 mU/mL 15-16 Weeks 8240-52149 mU/mL 17-18 Weeks.PROGRESS AND PROCEDURESCourse of Care: 21:43 06/14/19. workup all in and reviewed, pt is O positive; preliminary obstetrical USshows Single VIUP 8w 5d, FHT at 176/min, EDC: 01-21-20; will refer pt to [facility]. Patient counseled in person regarding the patient's stable condition, test results, diagnosis and need for follow-up. Patient agrees with plan of care. Disposition: Condition: good and stable. Discharge decision based on the following: patient's condition is stable; patient's condition is improved; patient is ambulatory; patient is active; patient drinking fluids; patient eating; patient's pain is controlled; patie nt's exam is improved; no abnormal test results; improving condition on multiple repeat evaluations; social support is good; transportation is available; follow-up is available; clinical impression is consistent with outpatient treatment.CLINICAL IMPRESSION First trimester . (1st trimester bleeding).INSTRUCTIONS No strenuous activity until better. Drink plenty of fluids. Do not smoke. No alcohol. Warnings: Further evaluation is necessary (by REMOTE SENSING SURVEYOR). It is very important to follow up with a healthcare provider. GENERAL WARNINGS: Return or contact your physician immediately if your condition worsens or changes unexpectedly, if not improving as expected, or if other problems arise. Specifically return if pain, vomiting, bleeding, breathing difficulty or fever greater than 102 degrees F and not controlled by 6 Clinical Report - Physicians/Mid Levels [facility] Emergency Department [address] [place] [address] Phone #: ext- [phone] 06/14/2019 19:08 Patient: KHRIS PETERSEN Sex: F : 1990 Age: 29y acetaminophen worsens. Your Current Medications: Your current home medications have been reviewed. CONTINUE TAKING THE FOLLOWING MEDICATIONS: Acetaminophen Oral : Tablet 500 mg, 1 tablet, Last: 1000, prn. Citalopram Hydrobromide Oral : Tablet 40 mg, 1 tablet daily. Follow-up: Return to the emergency department as needed. Follow up with an ship boss in three days even if well. Call for an appointment. Reason for referral: evaluation and treatment. Summary of care provided to patient via paper. Understanding of the discharge instructions verbalized by patient. Expected course of illness, discharge instructions, activity level, diet, follow-up appointment and risks and benefits of treatment reviewed with patient and understanding verbalized. Agrees to plan of care. Follow-up with: [facility], , , [address] [place] [address], [phone] Follow up in three days even if well. Call for an appointment. Reason for referral: evaluation and treatment. Summary of care provided to patient via paper.(Electronically signed by Carl Heart M.D. 06/14/2019 22:58) Name Value Range Interpretation Code Description Data Betina rce(s) Supporting Document(s) ID Date Data Source [id number] 06/14/2019 10:54:[address] [address] ---------NAME--------- NUMBER SEX AGE ADMIT DISC. XRAY# F/C TYPE RTINITY Walters [id number] F 29 06/14/19 06/14/19 [id number] SB4 E/R DATE OF : 1990 M/R# [id number] #: [id number] VT-02 LOCATION: EMERGENCY DEPT TRANSCRIBED: 06/14/19 22:54 IF US OB 1ST TRI UP TO 14 WEEKS [id number] COMPLETED:06/14/19 22:24 [facility] [id number] Reason(s): LMP: 04-14-19 EDC: 01-22-20 8 weeks, bleeding and cramping PHYSICIAN: ROSEMARIE ESPINAL == R A D I O L O G Y R E P O R T PATIENT HISTORY:BLEEDING AND CRAMPINGULTRASOUND PELVIS TRANSABDOMINALCOMPARISON: NoneHISTORY: BLEEDING AND CRAMPINGTECHNIQUE:Ultrasound images through the pelvis obtained via transabdominal approach.FINDINGS:Single live intrauterine gestation identified, 8 weeks and 3 days by crown-rumplength. EDC 01/19/2020. heart rate 176 beats per minute. No perigestational hemorrhage. Cervix isclosed measuring 3.1 cm.Doppler flow is detected in the ovaries bilaterally. No adnexal mass or freefluid.IMPRESSIONS:Single live intrauterine gestation, 8 weeks and 3 days by crown-rump length.Electronically Signed By:Chico Amezquita M.D. , RadiologistDate/Time: 06/14/19 22:54 Name Value Range Interpretation Code Description Data Betina rce(s) Supporting Document(s) ID Date Data Source [id number] 06/14/2019 09:00:00 PM [facility] Name Value Range Interpretation Code Description Data Betina rce(s) Supporting Document(s) Choriogonadotropin.intact [Units/volume] in Serum or Plasma 98804.0 mIU/mL [facility] Interpr etation: Less than 5 mU/mL: Negative 6-10 mU/mL: Borderline (suggest repeat in 48 hours) >10: Positive Approx HCG range (mU/mL) Weeks post LMP 5.4-708 mU/mL 3-4 Weeks 217-04302 mU/mL 5-6 Weeks 4059-433771 mU/mL 7-8 Weeks 04339-292340 mU/mL 9-10 Weeks 97407-00375 mU/mL 12-14 Weeks 49781-51059 mU/mL 15-16 Weeks 8240- 64588 mU/mL 17-18 Weeks ID Date Data Source [id number] 06/14/2019 08:50:00 PM [facility] Name Value Range Interpretation Code Description Data Betina rce(s) Supporting Document(s) ABO group [Type] in Blood O [facility] Rh [Type] in Blood POSITIVE [facility] { ABO/RH REENTER O POSITIVE ID Date Data Source [id number] 06/14/2019 08:47:00 PM [facility] Name Value Range Interpretation Code Description Data Betina rce(s) Supporting Document(s) COMPREHENSIVE METABOLIC PANEL [facility] COMPREHENSIVE METABOLIC PANEL Sodium [Moles/volume] in Serum or Plasma 136 mEq/L 134 - 153 [facility] Potassium [Moles/volume] in Serum or Plasma 4.4 mEq/L 3.6 - 5.0 [facility] Chloride [Moles/volume] in Serum or Plasma 100 mEq/L 98 - 107 [facility] Carbon dioxide, total [Moles/volume] in Serum or Plasma 25 MEQ/L 22 - 30 [facility] Glucose [Mass/volume] in Serum or Plasma 101 MG/DL 65 - 110 [facility] BUN 11 MG/DL 7 - 21 [facility] Creatinine [Mass/volume] in Serum or Plasma 0.5 MG/DL 0.7 - 1.5 L [facility] BUN/CREAT 22 8 - 27 [facility] Protein [Mass/volume] in Serum or Plasma 6.8 G/DL 6.3 - 8.2 [facility] Albumin [Mass/volume] in Serum or Plasma 4.3 G/DL 3.9 - 5.0 [facility] Globulin [Mass/volume] in Serum by calculation 2.5 GM/DL 2.4 - 3.2 [facility] A/G RATIO 1.7 0.8 - 2.0 [facility] Calcium [Mass/volume] in Serum or Plasma 9.5 MG/DL 8.4 - 10.2 [facility] Bilirubin.total [Mass/volume] in Serum or Plasma <0.7 MG/DL 0.2 - 1.3 [facility] Alkaline phosphatase [Enzymatic activity/volume] in Serum or Plasma 71 U/L 38 - 126 [facility] Aspartate aminotransferase [Enzymatic activity/volume] in Serum or Plasma 14 U/L 5 - 40 [facility] Alanine aminotransferase [Enzymatic activity/volume] in Seru m or Plasma 11 U/L 7 - 56 [facility] Anion gap 3 in Serum or Plasma 11.0 mmol/L 8.0 - 16.0 [facility] AGE 29 yrs [facility] al NON-AA GFR >60 mL/min [facility] ital AFR AMER GFR >60 mL/min [facility] Male GFR In terprentation 20-49 yrs >60 mL/min Normal 50-59 yrs >56 mL/min Normal 60-69 yrs >49 mL/min Normal 70-79yrs >42 mL/min Normal 80 and above >35 mL/min Normal Female GFR Interpretation 20-39 yrs >60 mL/min Normal 40-49 yrs >58 mL/min Normal 50-59 yrs >51 mL/min Normal 60-69 yrs >45 mL/min Normal 70-79 yrs >39 mL/min Normal 80 and above >32 mL/min Normal ID Date Data Source [id number] 06/14/2019 08:26:00 PM EST [facility] Name Value Range Interpretation Code Description Data Betina rce(s) Supporting Document(s) CBC W/AUTOMATED DIFF [facility] COMPLETE BLOOD COUNT Leukocytes [#/volume] in Blood by Automated count 8.9 10^3/uL 4.2 - 1 1.0 [facility] Erythrocytes [#/volume] in Blood by Automated count 4.14 10^6/uL 4. 20 - 5.40 L [facility] Hemoglobin [Mass/volume] in Blood 12.0 g/dL 12.0 - 16.0 [facility] Hematocrit [Volume Fraction] of Blood by Automated count 36.6 % 3 7.0 - 47.0 L [facility] Erythrocyte mean corpuscular volume [Entitic volume] by Auto mated count 88.4 fL 81.0 - 101 [facility] Erythrocyte mean corpuscular hemoglobin [Entitic mass] by Automated count 29.0 pg 27.0 - 34.0 [facility] Erythrocyte mean corpuscular hemoglobin concentration [Mass/volume] by Automated count 32.8 g/dL 31.0 - 36.0 [facility] Erythrocyte distribution width [Ratio] by Automated count 12.5 % 11.5 - 14.5 [facility] Platelets [#/volume] in Blood by Automated count 283 10^3/uL 150 - 45 0 [facility] Platelet mean volume [Entitic volume] in Blood by Automated count 10.5 fL 7.4 - 10.4 H [facility] Neutrophils/100 leukocytes in Blood by Automated count 53.6 % 37. 0 - 80.0 [facility] Lymphocytes/100 leukocytes in Blood by Manual count 39.5 % 25.0 - 40.0 [facility] Monocytes/100 leukocytes in Blood by Automated count 6.2 % 3.0 - 8.0 [facility] Eosinophils/100 leukocytes in Blood by Automated count 0.3 % 0.0 - 7.0 [facility] Basophils/100 leukocytes in Blood by Automated count 0.1 % 0.0 - 2.5 [facility] %IG 0.3 % 0.0 - 0.0 H [facility] %NRBC 0.0 % 0.0 - 0.0 [facility] al Neutrophils [#/volume] in Blood by Automated count 4.77 10^3/uL 2.00 - 6.90 [facility] Lymphocytes [#/volume] in Blood by Automated count 3.52 10^3/uL 0.60 - 3.40 H [facility] Monocytes [#/volume] in Blood by Automated count 0.55 10^3/uL 0.00 - 0.90 [facility] Eosinophils [#/volume] in Blood by Automated count 0.03 10^3/uL 0.00 - 0.70 [facility] Basophils [#/volume] in Blood by Automated count 0.01 10^3/uL 0.00 - 0.20 [facility] #IG 0.03 10^3/uL 0.00 - 0.10 [facility] #NRBC 0.00 10^3/uL 0.00 - 0.00 [facility] MANUAL DIFF NOT INDICATED [facility] RBC MORPH NOT INDICATED [facility] ID Date Data Source [id number] 06/16/2019 09:07:00 AM EST [facility] Name Value Range Interpretation Code Description Data Betina rce(s) Supporting Document(s) Urine culture result No growth [facility] ID Date Data Source [id number] 06/16/2019 11:22:00 PM [facility] Name Value Range Interpretation Code Description Data Betina rce(s) Supporting Document(s) CULTURE URINE [facility] _CULTURE URINE_ [place] [address] CLIA# [id number] SEE SCANNED REPORT Result: ID Date Data Source [id number] 06/14/2019 08:17:00 PM EST [facility] Name Value Range Interpretation Code Description Data Betina rce(s) Supporting Document(s) [facility]IS [facility] URINALYS[facility] SOURCE R [facility] al COLOR yellow NORMAL: Yellow [facility] CLARITY clear NORMAL: Clear [facility] Specific gravity of Urine by Test strip 1.015 1.001 - 1.030 [facility] pH 6 5 - 9 [facility] Glucose [Mass/volume] in Urine by Test strip NORM NORMAL: Negat [facility] Bilirubin.total [Presence] in Urine by Test strip NEG NORMAL: Negative [facility] Ketones [Presence] in Urine by Test strip NEG NORMAL: Negative [facility] Protein [Mass/volume] in Urine by Test strip NEG NORMAL: Negat [facility] Nitrite [Presence] in Urine by Test strip NEG NORMAL: Negative [facility] BLOOD NEG NORMAL: Negative [facility] Leukocyte esterase [Presence] in Urine by Test strip 25 YOSSI L: Negative [facility] Urobilinogen [Mass/volume] in Urine by Test strip NOR less shelly n 1.0 mg/dL [facility] MICROSCOPIC See Below [facility] ital WBC 1 - 3 NORMAL: NONE SEEN [facility] Erythrocytes [#/volume] in Urine by Test strip None Seen NORMAL: NON E SEEN [facility] EPITHELIAL MODERATE NORMAL: NONE SEEN A [facility] Bacteria [Presence] in Urine sediment by Light microscopy Tr james NORMAL: NONE SEEN [facility] Procedure Social History Code Duration Value Status Description Data Source(s ) Smoking 03/24/2020 12:00:00 AM EST Never Smoker completed [facility] Smoking 10/18/2019 12:00:00 AM EDT Never Smoker completed Never S moker eCW1 ([facility] Smoking 10/15/2019 12:00:00 AM EDT Never Smoker completed Never S moker eCW1 ([facility] Smoking 10/15/2019 12:00:00 AM EDT Never Smoker completed Never S moker eCW1 ([facility] Smoking 09/13/2019 12:00:00 AM EDT Never Smoker completed Never S moker eCW1 ([facility]) Vital Signs ID Date Data Source UNK Name Value Range Interpretation Code Description Data Source(s) Body weight 66.452 kg 66.452 kg [facility] ([facility]) Body mass index (BMI) [Ratio] 25.1 kg/m2 25.1 k g/m2 [facility] ([facility]) Body weight 146.50 [lb_av] 146.50 [lb_av] MEDEN T ([facility]) Body height 64 [in_i] 64 [in_i] [facility] ([facility]) 5'4" Body temperature 96.8 [degF] 96.8 [degF] [facility] ([facility]) Diastolic blood pressure 56 mm[Hg] 56 mm[Hg] [facility] ([facility]) Systolic blood pressure 100 mm[Hg] 100 mm[Hg] [facility] Diastolic blood pressure 60 mm[Hg] 60 mm[Hg] [facility]CW[facility] Systolic blood pressure 102 mm[Hg] 102 mm[Hg] e CW1 ([facility] Body mass index (BMI) [Ratio] 27.258 kg/m2 27.2 58 kg/m2 eCW1 [facility] Body height 64 [in_us] 64 [in_us] W1 ([facility]) Body weight Measured 158.8 [lb_av] 158.8 [lb_av ] W[facility] Body weight 70.025 kg 70.025 kg [facility] Body mass index (BMI) [Ratio] 26.5 kg/m2 26.5 k g/m2 [facility] ([facility]) Body weight 154.38 [lb_av] 154.38 [lb_av] MEDEN T ([facility]) Body height 64 [in_i] 64 [in_i] [facility] ([facility]) 5'4" Body temperature 98.6 [degF] 98.6 [degF] [facility] ([facility]) Heart rate 87 /min 87 /min [facility] ([facility], ) Diastolic blood pressure 72 mm[Hg] 72 mm[Hg] MEDENT ([facility], ) Systolic blood pressure 114 mm[Hg] 114 mm[Hg] M EDENT ([facility], ) Diastolic blood pressure 64 mm[Hg] 64 mm[Hg] [facility] Systolic blood pressure 104 mm[Hg] 104 mm[Hg] e CW1 ([facility] Body mass index (BMI) [Ratio] 26.262 kg/m2 26.2 62 kg/m2 eCW1 ([facility] Body height 64 [in_us] 64 [in_us] eCW1 ([facility]) Body weight Measured 153 [lb_av] 153 [lb_av] eC W1 ([facility] Diastolic blood pressure 70 mm[Hg] 70 mm[Hg] eCW1 ([facility] Systolic blood pressure 128 mm[Hg] 128 mm[Hg] e CW1 ([facility]) Body mass index (BMI) [Ratio] 25.988 kg/m2 25.9 88 kg/m2 eCW1 ([facility] Body height 64 [in_us] 64 [in_us] eCW1 ([facility]) Body weight Measured 151.4 [lb_av] 151.4 [lb_av ] eCW1 [facility] Diastolic blood pressure 65 mm[Hg] 65 mm[Hg] eCW1 [facility] Systolic blood pressure 105 mm[Hg] 105 mm[Hg] e CW1 ([facility] Body temperature 99.8 [degF] 99.8 [degF] eCW1 [facility] Respiratory rate 18 /min 18 /min eCW1 ([facility]) Heart rate 98 /min 98 /min eCW1 ([facility]) Body mass index (BMI) [Ratio] 24.71 kg/m2 24.71 kg/m2 eCW1 [facility] Body height 64 [in_us] 64 [in_us] eCW1 ([facility]) Body weight Measured 144 [lb_av] 144 [lb_av] eC W1 ([facility] Diastolic blood pressure 76 mm[Hg] 76 mm[Hg] eCW1 ([facility]) Systolic blood pressure 114 mm[Hg] 114 mm[Hg] e CW1 ([facility]) Body mass index (BMI) [Ratio] 25.164 kg/m2 25.1 64 kg/m2 eCW1 [facility] Body height 64 [in_us] 64 [in_us] eCW1 ([facility]) Body weight Measured 146.6 [lb_av] 146.6 [lb_av ] eCW1 [facility] Patient Treatment Plan of Care Planned Activity Planned Date Details Description Data Source (s) Amphetamine aspartate 2.5 MG / Amphetami ne Sulfate 2.5 MG / Dextroamphetamine saccharate 2.5 MG / Dextroamphetamine Sulfate 2.5 MG Oral Tablet [Adderall] 02/13/2020 12:00:00 AM EDT eCW1 ([facility]) Amphetamine aspartate 2.5 MG / Amphetami ne Sulfate 2.5 MG / Dextroamphetamine saccharate 2.5 MG / Dextroamphetamine Sulfate 2.5 MG Oral Tablet [Adderall] 10/15/2019 12:00:00 AM EDT eCW1 ([facility]) Amphetamine aspartate 2.5 MG / Amphetami ne Sulfate 2.5 MG / Dextroamphetamine saccharate 2.5 MG / Dextroamphetamine Sulfate 2.5 MG Oral Tablet [Adderall] 10/15/2019 12:00:00 AM EDT eCW1 ([facility]) Amphetamine aspartate 2.5 MG / Amphetami ne Sulfate 2.5 MG / Dextroamphetamine saccharate 2.5 MG / Dextroamphetamine Sulfate 2.5 MG Oral Tablet [Adderall] 09/13/2019 12:00:00 AM EDT eCW1 ([facility]) Amphetamine aspartate 2.5 MG / Amphetami ne Sulfate 2.5 MG / Dextroamphetamine saccharate 2.5 MG / Dextroamphetamine Sulfate 2.5 MG Oral Tablet [Adderall] 09/13/2019 12:00:00 AM EDT eCW1 ([facility]) Ursodiol 300 MG Oral Capsule 08/31/2019 12:00:00 AM EDT eCW[facility] ([facility]) Ursodiol 300 MG Oral Capsule 08/31/2019 12:00:00 AM EDT eCW1 ([facility]) Acetaminophen 325 MG / butalbital 50 MG / Caffeine 40 MG Oral Capsule [Esgic] 08/15/2019 12:00:00 AM EDT eCW1 ([facility]) Acetaminophen 325 MG / butalbital 50 MG / Caffeine 40 MG Oral Capsule [Esgic] 08/15/2019 12:00:00 AM EDT eCW1 ([facility]) Amphetamine aspartate 2.5 MG / Amphetami ne Sulfate 2.5 MG / Dextroamphetamine saccharate 2.5 MG / Dextroamphetamine Sulfate 2.5 MG Oral Tablet [Adderall] 08/15/2019 12:00:00 AM EDT eCW1 ([facility]) Amphetamine aspartate 2.5 MG / Amphetami ne Sulfate 2.5 MG / Dextroamphetamine saccharate 2.5 MG / Dextroamphetamine Sulfate 2.5 MG Oral Tablet [Adderall] 07/20/2019 12:00:00 AM EDT eCW1 ([facility]) Amphetamine aspartate 2.5 MG / Amphetami ne Sulfate 2.5 MG / Dextroamphetamine saccharate 2.5 MG / Dextroamphetamine Sulfate 2.5 MG Oral Tablet [Adderall] 07/19/2019 12:00:00 AM EDT eCW1 ([facility]) Amphetamine aspartate 2.5 MG / Amphetami ne Sulfate 2.5 MG / Dextroamphetamine saccharate 2.5 MG / Dextroamphetamine Sulfate 2.5 MG Oral Tablet [Adderall] 07/19/2019 12:00:00 AM EDT eCW1 ([facility]) Oseltamivir 75 MG Oral Capsule [Tamiflu] 06/28/2019 12:00:00 AM EST [facility]CW[facility])
--- OUTSIDE RECORDS SUMMARY | 2020-05-23 08:33 | CCD | Continuity of Care Document ---
Author Author Ivory CHRISTENSEN Organization Unknown Address [address] [facility] [address] [place] [address] Phone [phone] Care Team Providers Care Bobtail Driver Name Role Phone VIDAL CHRISTENSEN AUTM [phone] Social History Type Date Description Comments Sex Unknown Encounters Type Date Location Provider Dx Diagnosis Office Visit 05/12/2020 10:30a [facility] KIRK Castro F90.9 Attention-deficit hyperactiv ity disorder, unspecified type F41.9 Anxiety disorder, unspecifie d Office Visit 04/15/2020 2:45p [facility] KIRK Castro S93.502A Unspecified sprain of left g reat toe, initial encounter F90.9 Attention-deficit hyperactiv ity disorder, unspecified type F41.9 Anxiety disorder, unspecifie d Office Visit 04/10/2020 2:45p [facility] KIRK Castro F90.9 Attention-deficit hyperactiv ity disorder, unspecified type F41.9 Anxiety disorder, unspecifie d Assessments Date Code Description Provider 05/12/2020 F90.9 Attention-deficit hyperactivity disorder, unspecified type KIRK Becerra 05/12/2020 F41.9 Anxiety disorder, unspecified Fr KIRK Bridges 04/15/2020 S93.502A Unspecified sprain of left great toe, initial encounter KIRK Becerra 04/15/2020 F90.9 Attention-deficit hyperactivity disorder, unspecified type KIRK Becerra 04/15/2020 F41.9 Anxiety disorder, unspecified Fr rosa maria Christensen, KIRK 04/10/2020 F90.9 Attention-deficit hyperactivity disorder, unspecified type Vidal Christensen, KIRK 04/10/2020 F41.9 Anxiety disorder, unspecified Fr rosa maria Christensen, KIRK 03/12/2020 F90.9 Attention-deficit hyperactivity disorder, unspecified type KIRK Becerra 03/12/2020 F41.9 Anxiety disorder, unspecified KIRK Montalvo 03/12/2020 F32.9 Major depressive disorder, singl e episode, unspecified KIRK Becerra Plan of Treatment Future Appointment(s):* 06/11/2020 10:00 am - KIRK Becerra at [facility]
[2020-05-23] MEDS ORDERED: LIDOCAINE 2% 100MG/5ML SDV (FOR ANES.) As Ordered ONE (08:38)
[2020-05-23] MEDS ORDERED: propofoL 200 MG/20 ML VIAL As Ordered ONE (08:38)
[2020-05-23] MEDS ORDERED: ROCURONIUM BROMIDE 50 MG/5 ML VIAL As Ordered ONE (08:38)
[2020-05-23] MEDS ORDERED: fentaNYL 100 MCG/2 ML INJECTION (J3010) As Ordered ONE (08:38)
[2020-05-23] MEDS ORDERED: dexameTHASONE 4 MG/ML 1ML VIAL (J1100 PER 1MG) As Ordered ONE (08:38)
[2020-05-23] MEDS ORDERED: ONDANSETRON 4MG/2ML VIAL As Ordered ONE (08:38)
[2020-05-23] MEDS ORDERED: MIDAZOLAM INJ 2MG/2ML VIAL (J2250 PER 1MG) As Ordered ONE (08:38)
[2020-05-23] MEDS ORDERED: HYDROmorphone HCL 2 MG/ML 1ML VIAL (J1170) As Ordered ONE (08:38)
[2020-05-23] MEDS ORDERED: KETOROLAC 60MG 2ML VIAL As Ordered ONE (08:38)
[2020-05-23 09:23] LABS: HEMATOCRIT 38.7 % (36.0-47.0); HEMOGLOBIN 12.6 g/dl (12.0-15.5); MEAN CORPUSCULAR HEMOGLOBIN 27.2 pg (27.0-33.0); MEAN CORPUSCULAR HGB CONC 32.6 g/dl (32.0-36.5); MEAN CORPUSCULAR VOLUME 83.4 fl (80.0-96.0); PLATELET COUNT, AUTOMATED 309 10^3/uL (150-450); RED BLOOD COUNT 4.64 10^6/uL (4.00-5.40); WHITE BLOOD COUNT 7.3 10^3/uL (4.0-10.0)
[2020-05-23] MEDS ORDERED: BUPIVACAINE HCL 0.25% 30ML VIAL As Ordered ONE (09:51)
--- NOTE | 2020-05-23 10:08 | ROOPDOC ---
[facility] Report Of Operation Report of Operation DATE OF PROCEDURE: 05/23/20 REPROCEDURE DIAGNOSES: Satisfied parity with undesired fertility. POSTPROCEDURE DIAGNOSES: Satisfied parity with undesired fertility. PROCEDURE: Diagnostic operative laparoscopy with bilateral salpingectomy for purpose of tubal ligation.. SURGEON: Angela Almanzar MD DINKEY LOCOMOTIVE ENGINEER: None ANESTHESIA: General endotracheal anesthesia. INTRAVENOUS FLUIDS: 250 mL of lactated Ringer's solution. ESTIMATED BLOOD LOSS: Approximately 5 mL. URINE OUTPUT: 100 mL. PREOPERATIVE ANTIBIOTICS: None. SPECIMENS: Bilateral fallopian tubes. COMPLICATIONS: None OPERATIVE FINDINGS: Patient with normal appearing uterus and bilateral adnexa. DESCRIPTION OF PROCEDURE: After informed consent was obtained and written consent was reviewed, the patient was brought to the operating room where she was placed under general endotracheal anesthesia. She was then placed in the lithotomy position. She was prepped and draped in a normal sterile fashion. A time-out in the operating room was then performed identifying the patient, procedure to be performed, as well as drug allergies. Marble speculum was then placed revealing the cervix. The anterior lip of the cervix was grasped with a single-tooth tenaculum. A Hulka tenaculum was then advanced through the cervical os for a means to manipulate the uterus. Single-tooth tenaculum as well as the speculum was removed. Shraif catheter was then placed and set to gravity. Gloves were changed. Attention was turned to the patient's abdomen where 0.25% Marcaine was infused in umbilical region. This area was incised and a 5 mm trocar and sleeve was advanced through this incision. The laparoscope was then replaced revealing intraabdominal placement. Pneumoperitoneum was then obtained with CO2 gas. The abdomen was then surveyed with the above-noted findings. Two additional port sites were placed. One port site was placed 2 cm above the pubis symphysis in the midline. This area was infused with 0.25% Marcaine. An incision was made in this area and 8 mm trocar and sleeve was advanced through this incision under direct visualization. A second accessory port was placed left side of the patient's abdomen. This area was infused with 0.25% Marcaine. A 5 mm trocar and sleeve was advanced through this incision under direct visualization. Next, the right fallopian tube was then placed on traction. Using Harmonic Óscar scalpel device, the mesosalpinx was dissected underneath the fallopian tube and was transected at the level of the uterus. Specimen was then brought out the port site. In a similar fashion, left fallopian tube was dissected along the left mesosalpinx underneath the fallopian tube and transected at the level of the uterus. The specimen was removed. Surgical sites were inspected and noted to be hemostatic. Pneumoperitoneum was then released and port sites were then closed with #4-0 Monocryl and was dressed with Dermabond. Sharif catheter as well as a Hulka tenaculum was removed. The patient was then taken out of the lithotomy position, was awakened from general anesthesia and taken to recovery in stable condition. Counts were correct. ANGELA ALMANZAR MD. May 23, 2020 10:08
[2020-05-23] MEDS ORDERED: IBUP1TAB7 PO (10:13)
[2020-05-23] MEDS ORDERED: PERC5TAB12 PO (10:14)
[2020-05-23] MEDS ORDERED: LACRILUBE (AKWA TEARS) OPHTH OINT 3.5 GM As Ordered ONE (10:23)
[2020-05-23] MEDS ORDERED: ACETAMINOPHEN 1000MG 100ML IV BTL (OFIRMEV) (J0131 PER 10MG) As Ordered ONE (10:26)
[2020-05-23] MEDS ORDERED: SUGAMMADEX SODIUM 500 MG/5 ML VIAL (BRIDION) As Ordered ONE (10:27)
[2020-05-23] MEDS ORDERED: ePHEDrine SULFATE 25 MG/5 ML(5MG/ML) SYRINGE As Ordered ONE (10:40)
[2020-05-23] MEDS ORDERED: PERCOCET 5MG/325MG TAB As Ordered ONE (11:32)
[2020-05-23] MEDS: PERCOCET 5MG/325MG TAB PO PRN ×2 (11:33→12:54)
[2020-05-23] MEDS ORDERED: METOCLOPRAMIDE INJ 10MG/2ML VIAL (J2765 PER 1) IV PRN (12:00)
[2020-05-23] MEDS ORDERED: fentaNYL 100 MCG/2 ML INJECTION (J3010) IV PRN (12:00)
[2020-05-23] MEDS ORDERED: LR 1,000 ML IV SCH (12:00)
[2020-05-23] MEDS ORDERED: ONDANSETRON 4MG/2ML VIAL IV PRN (12:00)
[2020-05-23] MEDS ORDERED: PERCOCET 5MG/325MG TAB PO PRN (12:45)
[2020-05-23 12:50] VITALS: BP 121/75
== END 2020-05-23 13:06 | disposition home or self-care (01) ==
LOC: M SDC 08:29
PROVIDERS: ATTEND Obstetrics & Gynecology
DX: Z30.2 Encounter for sterilization (principal); F90.9 Attention-deficit hyperactivity disorder, unspecified type; F41.9 Anxiety disorder, unspecified; F32.9 Major depressive disorder, single episode, unspecified; Z79.899 Other long term (current) drug therapy
CPT/HCPCS: 36415; 58661; 81025; 85027; 86850; 86900; 86901; 88302; J0131; J1100; J1170; J1885; J2250; J2405; J3010

== ENCOUNTER 2021-08-25 17:54 | Emergency (ER) | payer OTHER ==
[~2021-08-25] VITALS: Ht 162.6 cm; Wt 160.0 kg
[~2021-08-25 17:54] MED LIST changes: +IBUP1TAB7 PO; -LR 1,000 ML IV ONE; +PERC5TAB12 PO
[2021-08-25 17:55] VITALS: BP 113/73
== END 2021-08-25 18:20 | disposition left against medical advice (07) ==
LOC: M ED 17:54
DX: Z53.21 Procedure and treatment not carried out due to patient leaving prior to being seen by health care provider (principal)